=== PATIENT | female | born 1970 | race African-American/Black ===

== ENCOUNTER 2021-12-06 10:27 | Observation (INO) | payer OTHER ==
[2021-12-06 11:25] VITALS: BMI 32.1
[2021-12-06] MEDS ORDERED: ALBUTEROL SO4 0.083% IH SOL 2.5 MG/3 ML VIAL.NEB. NEB ONE (11:47)
[2021-12-06] MEDS: ALBUTEROL SO4 0.083% IH SOL 2.5 MG/3 ML VIAL.NEB. NEB SCH ×4 (11:50→12:50)
[2021-12-06] MEDS ORDERED: METOCLOPRAMIDE HCL INJECTION 10 MG/2 ML VIAL IVPB ONE (13:46)
[2021-12-06] MEDS ORDERED: METOCLOPRAMIDE HCL INJECTION 10 MG/2 ML VIAL ONE (13:50)
[2021-12-06] MEDS ORDERED: METOCLOPRAMIDE HCL 10 MG TABLET (FP) PO ONE ×2 (13:58→14:00)
[2021-12-06] MEDS ORDERED: HYDROmorphone HCl 2 MG/ML VIAL IVPUSH ONE (17:16)
[2021-12-06] MEDS ORDERED: HYDROmorphone HCl 2 MG/ML VIAL ONE (17:35)
[2021-12-06 18:24] LABS: BASO % 0.2 % (0-2.0); EOS % 0.5 % (0-4.5); HEMATOCRIT 45.1 % (32.4-45.2); HEMOGLOBIN 15.4 GM/dL (10.7-15.3); LYMPH % 29.7 % (8-40); MCH 32.6 pg (25.7-33.7); MCHC 34.3 g/dl (32.0-36.0); MEAN CELL VOLUME 95.1 fl (80-96); MEAN PLT VOLUME 8.8 fl (7.5-11.1); NEUT % 60.6 % (42.8-82.8); PLATELET COUNT 201 10^3/uL (134-434); RBC 4.74 M/mm3 (3.60-5.2); RDW 13.6 % (11.6-15.6); WHITE BLOOD COUNT 6.2 K/mm3 (4.0-10.0)
[2021-12-06 18:30] LABS: CALCIUM 9.4 mg/dL (8.5-10.1)
[2021-12-06 18:32] LABS: ALBUMIN 3.6 g/dl (3.4-5.0); BLOOD UREA NITROGEN 13.6 mg/dL (7-18)
[2021-12-06 18:35] LABS: CREATININE 0.9 mg/dL (0.55-1.3)
[2021-12-06 18:37] LABS: BILIRUBIN,TOTAL 0.5 mg/dL (0.2-1); TOT PROT 7.2 g/dl (6.4-8.2)
[2021-12-06] MEDS ORDERED: ACETAMINOPHEN 325 MG TABLET (FP) PO PRN (18:45)
[2021-12-06] MEDS ORDERED: ACETAMINOPHEN 325 MG TABLET (FP) ONE (18:50)
[2021-12-06] MEDS: ACETAMINOPHEN 325 MG TABLET (FP) PO SCH (18:53)
[2021-12-06] MEDS: GABAPENTIN 400 MG CAPSULE PO SCH (22:10)
[2021-12-06] MEDS: oxyCODONE HCL 5 MG TABLET PO PRN (22:11)
[2021-12-06] MEDS: DOCUSATE SODIUM 100 MG CAPSULE (FP) PO SCH (22:12)
[2021-12-06] MEDS: HEPARIN NA (PORCINE) 5,000 UNITS/ML 1ML VIAL SQ SCH (22:12)
[2021-12-07] MEDS ORDERED: morphine SULFATE 4 MG/ML VIAL IVPUSH ONE (04:06)
[2021-12-07] MEDS: GABAPENTIN 400 MG CAPSULE PO SCH (06:23)
[2021-12-07] MEDS: HEPARIN NA (PORCINE) 5,000 UNITS/ML 1ML VIAL SQ SCH ×3 (06:23→21:13)
[2021-12-07] MEDS: oxyCODONE HCL 5 MG TABLET PO PRN (06:23)
[2021-12-07 08:41] LABS: HEMATOCRIT 42.4 % (32.4-45.2); HEMOGLOBIN 14.5 GM/dL (10.7-15.3); MCH 32.7 pg (25.7-33.7); MCHC 34.1 g/dl (32.0-36.0); MEAN CELL VOLUME 95.9 fl (80-96); MEAN PLT VOLUME 8.8 fl (7.5-11.1); PLATELET COUNT 179 10^3/uL (134-434); RBC 4.42 M/mm3 (3.60-5.2); RDW 13.6 % (11.6-15.6); WHITE BLOOD COUNT 4.1 K/mm3 (4.0-10.0)
[2021-12-07] MEDS: DOCUSATE SODIUM 100 MG CAPSULE (FP) PO SCH (09:55)
[2021-12-07] MEDS: FLUTICASONE/UMECLIDIN/VILANTER(200-62.5-25 TRELEGY ELLIPTA) INAHLER IH SCH (09:55)
[2021-12-07] MEDS: POLYETHYLENE GLYCOL (HEALTHYLAX) 3350 17 GM PACKET PO SCH (09:56)
[2021-12-07] MEDS: ACETAMINOPHEN 325 MG TABLET (FP) PO SCH ×2 (10:00→22:30)
[2021-12-07] MEDS ORDERED: IBUPROFEN 400 MG TABLET (FP) PO PRN (10:04)
[2021-12-07] MEDS: ACETAMINOPHEN 1000 MG/100 ML BAG IVPB SCH ×2 (12:12→18:11)
[2021-12-07] MEDS: PANTOPRAZOLE 40 MG TABLET PO SCH (12:27)
[2021-12-07] MEDS: GABAPENTIN 300 MG CAPSULE PO SCH ×2 (13:49→21:14)
[2021-12-07] MEDS ORDERED: IBUPROFEN 600 MG TABLET (FP) PO PRN (15:47)
[2021-12-07] MEDS: SENNOSIDES 8.6MG TABLET (FP) PO SCH (21:16)
[2021-12-08] MEDS: ACETAMINOPHEN 325 MG TABLET (FP) PO SCH ×4 (06:38→22:27)
[2021-12-08] MEDS: HEPARIN NA (PORCINE) 5,000 UNITS/ML 1ML VIAL SQ SCH ×3 (06:40→21:15)
[2021-12-08] MEDS: GABAPENTIN 300 MG CAPSULE PO SCH ×3 (06:41→21:15)
[2021-12-08 08:08] LABS: BASO % 0.3 % (0-2.0); EOS % 1.6 % (0-4.5); HEMATOCRIT 40.2 % (32.4-45.2); HEMOGLOBIN 13.8 GM/dL (10.7-15.3); LYMPH % 44.8 % (8-40); MCH 32.5 pg (25.7-33.7); MCHC 34.3 g/dl (32.0-36.0); MEAN CELL VOLUME 94.6 fl (80-96); MEAN PLT VOLUME 8.7 fl (7.5-11.1); MONO % 7.3 % (3.8-10.2); PLATELET COUNT 167 10^3/uL (134-434); RBC 4.25 M/mm3 (3.60-5.2); RDW 13.5 % (11.6-15.6); WHITE BLOOD COUNT 3.8 K/mm3 (4.0-10.0)
[2021-12-08 08:17] LABS: CALCIUM 8.5 mg/dL (8.5-10.1)
[2021-12-08 08:18] LABS: BLOOD UREA NITROGEN 12.3 mg/dL (7-18)
[2021-12-08 08:21] LABS: CREATININE 0.6 mg/dL (0.55-1.3)
[2021-12-08] MEDS: PANTOPRAZOLE 40 MG TABLET PO SCH (11:04)
[2021-12-08] MEDS: FLUTICASONE/UMECLIDIN/VILANTER(200-62.5-25 TRELEGY ELLIPTA) INAHLER IH SCH (11:04)
[2021-12-08] MEDS: POLYETHYLENE GLYCOL (HEALTHYLAX) 3350 17 GM PACKET PO SCH (11:04)
[2021-12-08] MEDS: SENNOSIDES 8.6MG TABLET (FP) PO SCH (21:15)
[2021-12-09] MEDS: HEPARIN NA (PORCINE) 5,000 UNITS/ML 1ML VIAL SQ SCH ×3 (05:54→21:37)
[2021-12-09] MEDS: ACETAMINOPHEN 325 MG TABLET (FP) PO SCH ×3 (05:57→21:38)
[2021-12-09] MEDS: GABAPENTIN 300 MG CAPSULE PO SCH ×3 (05:57→21:37)
[2021-12-09 09:29] LABS: BASO % 0.5 % (0-2.0); EOS % 1.5 % (0-4.5); HEMATOCRIT 42.1 % (32.4-45.2); HEMOGLOBIN 14.3 GM/dL (10.7-15.3); LYMPH % 47.6 % (8-40); MCH 32.4 pg (25.7-33.7); MCHC 33.9 g/dl (32.0-36.0); MEAN CELL VOLUME 95.7 fl (80-96); MEAN PLT VOLUME 9.1 fl (7.5-11.1); MONO % 6.6 % (3.8-10.2); NEUT % 43.8 % (42.8-82.8); PLATELET COUNT 191 10^3/uL (134-434); RDW 13.5 % (11.6-15.6); WHITE BLOOD COUNT 3.4 K/mm3 (4.0-10.0)
[2021-12-09 09:59] LABS: BLOOD UREA NITROGEN 5.2 mg/dL (7-18)
[2021-12-09 10:01] LABS: CALCIUM 8.9 mg/dL (8.5-10.1)
[2021-12-09 10:02] LABS: CREATININE 0.4 mg/dL (0.55-1.3)
[2021-12-09 10:04] LABS: TOT PROT 5.3 g/dl (6.4-8.2)
[2021-12-09 10:05] LABS: ALBUMIN 2.2 g/dl (3.4-5.0)
[2021-12-09] MEDS: POLYETHYLENE GLYCOL (HEALTHYLAX) 3350 17 GM PACKET PO SCH (10:39)
[2021-12-09] MEDS: PANTOPRAZOLE 40 MG TABLET PO SCH (10:41)
[2021-12-09] MEDS: FLUTICASONE/UMECLIDIN/VILANTER(200-62.5-25 TRELEGY ELLIPTA) INAHLER IH SCH (10:45)
[2021-12-09] MEDS: SODIUM CHLORIDE 1,000 ML IV SCH (14:19)
[2021-12-09] MEDS ORDERED: DEXTROSE 50%-WATER - 25 GM/50 ML VIAL IVPUSH PRN (16:50)
[2021-12-09] MEDS: SENNOSIDES 8.6MG TABLET (FP) PO SCH (21:37)
[2021-12-10] MEDS: SODIUM CHLORIDE 1,000 ML IV SCH ×2 (05:16→16:35)
[2021-12-10] MEDS: GABAPENTIN 300 MG CAPSULE PO SCH (05:16)
[2021-12-10] MEDS: ACETAMINOPHEN 325 MG TABLET (FP) PO SCH (05:17)
[2021-12-10] MEDS: HEPARIN NA (PORCINE) 5,000 UNITS/ML 1ML VIAL SQ SCH ×3 (05:20→21:34)
[2021-12-10] MEDS: PANTOPRAZOLE 40 MG TABLET PO SCH (09:22)
[2021-12-10] MEDS: POLYETHYLENE GLYCOL (HEALTHYLAX) 3350 17 GM PACKET PO SCH (09:22)
[2021-12-10] MEDS: FLUTICASONE/UMECLIDIN/VILANTER(200-62.5-25 TRELEGY ELLIPTA) INAHLER IH SCH (09:33)
[2021-12-10 09:52] LABS: BASO % 0.3 % (0-2.0); EOS % 1.4 % (0-4.5); HEMATOCRIT 43.6 % (32.4-45.2); LYMPH % 42.9 % (8-40); MCH 32.8 pg (25.7-33.7); MCHC 34.3 g/dl (32.0-36.0); MEAN CELL VOLUME 95.6 fl (80-96); MEAN PLT VOLUME 8.9 fl (7.5-11.1); MONO % 6.1 % (3.8-10.2); NEUT % 49.3 % (42.8-82.8); PLATELET COUNT 183 10^3/uL (134-434); RBC 4.56 M/mm3 (3.60-5.2); RDW 13.3 % (11.6-15.6); WHITE BLOOD COUNT 3.7 K/mm3 (4.0-10.0)
[2021-12-10 10:25] LABS: CALCIUM 8.8 mg/dL (8.5-10.1)
[2021-12-10 10:26] LABS: BLOOD UREA NITROGEN 11.8 mg/dL (7-18); MAGNESIUM 2.2 mg/dL (1.8-2.4)
[2021-12-10 10:29] LABS: CREATININE 0.7 mg/dL (0.55-1.3); PHOSPHOROUS 3.6 mg/dL (2.5-4.9)
[2021-12-10 10:30] LABS: BILIRUBIN,TOTAL 0.8 mg/dL (0.2-1); TOT PROT 6.4 g/dl (6.4-8.2)
[2021-12-10 10:38] LABS: ALBUMIN 3.1 g/dl (3.4-5.0)
[2021-12-10] MEDS ORDERED: ACETAMINOPHEN 325 MG TABLET (FP) PO PRN (12:54)
[2021-12-10] MEDS ORDERED: GABAPENTIN 300 MG CAPSULE PO SCH (14:00)
[2021-12-10] MEDS: LIDOCAINE 5% TOPICAL PATCH TP SCH (14:49)
[2021-12-10] MEDS: GABAPENTIN 400 MG CAPSULE PO SCH ×2 (14:49→21:34)
[2021-12-10] MEDS: oxyCODONE HCL 5 MG TABLET PO PRN ×2 (14:51→23:09)
[2021-12-10] MEDS ORDERED: DICLOFENAC SODIUM 25 MG TABLET.DR PO PRN (16:16)
[2021-12-10] MEDS: SENNOSIDES 8.6MG TABLET (FP) PO SCH (21:34)
[2021-12-10] MEDS: LIDOCAINE PATCH REMOVAL MC SCH (22:49)
[2021-12-11] MEDS: ACETAMINOPHEN 325 MG TABLET (FP) PO PRN ×3 (04:58→20:36)
[2021-12-11] MEDS: GABAPENTIN 400 MG CAPSULE PO SCH ×3 (05:07→21:17)
[2021-12-11] MEDS: HEPARIN NA (PORCINE) 5,000 UNITS/ML 1ML VIAL SQ SCH ×3 (05:08→21:18)
[2021-12-11] MEDS: oxyCODONE HCL 5 MG TABLET PO PRN ×2 (08:14→16:21)
[2021-12-11] MEDS: POLYETHYLENE GLYCOL (HEALTHYLAX) 3350 17 GM PACKET PO SCH (10:04)
[2021-12-11] MEDS: PANTOPRAZOLE 40 MG TABLET PO SCH (10:05)
[2021-12-11] MEDS: FLUTICASONE/UMECLIDIN/VILANTER(200-62.5-25 TRELEGY ELLIPTA) INAHLER IH SCH (10:05)
[2021-12-11] MEDS: LIDOCAINE 5% TOPICAL PATCH TP SCH (10:47)
[2021-12-11] MEDS: SENNOSIDES 8.6MG TABLET (FP) PO SCH (21:17)
[2021-12-11] MEDS: LIDOCAINE PATCH REMOVAL MC SCH (21:34)
[2021-12-12] MEDS: oxyCODONE HCL 5 MG TABLET PO PRN ×2 (00:46→09:32)
[2021-12-12] MEDS: ACETAMINOPHEN 325 MG TABLET (FP) PO PRN (05:15)
[2021-12-12] MEDS: HEPARIN NA (PORCINE) 5,000 UNITS/ML 1ML VIAL SQ SCH (05:17)
[2021-12-12] MEDS: GABAPENTIN 400 MG CAPSULE PO SCH (05:18)
[2021-12-12 06:23] VITALS: BP 121/73; PULSE 73; TEMP 98.3
[2021-12-12] MEDS: LIDOCAINE 5% TOPICAL PATCH TP SCH (09:32)
[2021-12-12] MEDS: PANTOPRAZOLE 40 MG TABLET PO SCH (09:33)
[2021-12-12] MEDS: POLYETHYLENE GLYCOL (HEALTHYLAX) 3350 17 GM PACKET PO SCH (09:40)
[2021-12-12] MEDS: FLUTICASONE/UMECLIDIN/VILANTER(200-62.5-25 TRELEGY ELLIPTA) INAHLER IH SCH (10:09)
== END 2021-12-12 12:19 | disposition home or self-care (01) ==
LOC: JER 10:27 → JERBED 16:38 → INTOOBSV 16:38 → J7W 21:54
PROVIDERS: ADMIT Internal Medicine; ATTEND Internal Medicine
PROC: 3E0F7GC Introduction of Other Therapeutic Substance into Respiratory Tract, Via Natural or Artificial Opening (ICD-10-PCS; principal; 2021-12-06)
PROC: 3E033GC Introduction of Other Therapeutic Substance into Peripheral Vein, Percutaneous Approach (ICD-10-PCS; 2021-12-06)
PROC: 3E023GC Introduction of Other Therapeutic Substance into Muscle, Percutaneous Approach (ICD-10-PCS; 2021-12-06)
PROC: 3E033NZ Introduction of Analgesics, Hypnotics, Sedatives into Peripheral Vein, Percutaneous Approach (ICD-10-PCS; 2021-12-06)
DX: M87.051 Idiopathic aseptic necrosis of right femur (principal); M25.551 Pain in right hip; J44.9 Chronic obstructive pulmonary disease, unspecified; G89.29 Other chronic pain; F43.10 Post-traumatic stress disorder, unspecified; Z29.9 Encounter for prophylactic measures, unspecified; E66.8 Other obesity; Z68.32 Body mass index [BMI] 32.0-32.9, adult; Z88.8 Allergy status to other drugs, medicaments and biological substances; Z87.891 Personal history of nicotine dependence
CPT/HCPCS: 36415; 72170-TC-FY; 73502-TC-RT-FY; 80048; 80053; 82550; 83735; 84100; 84484; 85025; 85027; 93005; 93010; 93971-TC; 94640; 96372; 96374; 96375; 96376; 97116-GP; 97161-GP; 99285-25; C9803; G0378; J1644; U0003; U0005

== ENCOUNTER 2022-11-02 14:16 | Inpatient (IN) | payer OTHER ==
[2022-11-02] MEDS ORDERED: FAMOTIDINE 20 MG/50 ML IVPB 20 MG/50 ML MG IVPB ONE ×2 (15:05→16:09)
[2022-11-02] MEDS ORDERED: ONDANSETRON 4 MG/2 ML VIAL IVPUSH ONE (15:05)
[2022-11-02] MEDS ORDERED: ACETAMINOPHEN 500 MG TABLET (FP) PO ONE (15:06)
[2022-11-02] MEDS ORDERED: ACETAMINOPHEN 325 MG TABLET (FP) ONE (16:08)
[2022-11-02] MEDS ORDERED: ONDANSETRON 4 MG/2 ML VIAL ONE (16:09)
[2022-11-02 16:20] LABS: EPI CELLS >36 /uL (0-25.1); HYALINE CASTS 11 /uL (0-3.1); URINE APPEARANCE CLEAR; URINE BACTERIA 92 /uL (0-1359); URINE BILIRUBIN NEGATIVE (NEGATIVE); URINE COLOR YELLOW; URINE GLUCOSE (UA) NEGATIVE (NEGATIVE); URINE KETONE 1+ (NEGATIVE); URINE LEUK ESTERASE NEGATIVE (NEGATIVE); URINE NITRITE NEGATIVE (NEGATIVE); URINE PROTEIN 2+ (NEGATIVE); URINE RBC 29 /uL (0-23.9); URINE WBC 52 /uL (0-25.8)
[2022-11-02] MEDS: LACTATED RINGERS SOLUTION 1,000 ML/1,000 ML INFUS.BAG IV SCH (16:38)
[2022-11-02 16:58] LABS: VENOUS BASE EXCESS 5.6 mmol/L (-2-2); VENOUS O2 SATURATION 34.3 % (70-80); VENOUS PCO2 49.3 mmHg (38-52); VENOUS PH 7.426 (7.310-7.410)
[2022-11-02 17:04] LABS: HEMATOCRIT 51.8 % (32.4-45.2); HEMOGLOBIN 17.6 GM/dL (10.7-15.3); MCH 32.8 pg (25.7-33.7); MEAN CELL VOLUME 96.7 fl (80-96); MEAN PLT VOLUME 8.8 fl (7.5-11.1); PLATELET COUNT 227 10^3/uL (134-434); RBC 5.36 M/mm3 (3.60-5.2); RDW 13.4 % (11.6-15.6); WHITE BLOOD COUNT 17.6 K/mm3 (4.0-10.0)
[2022-11-02 17:11] LABS: INR 1.09 (0.83-1.09); PROTHROMBIN TIME (PATIENT) 12.6 SEC (9.7-13.0)
[2022-11-02 17:14] LABS: ACTIVATED PTT 28.6 SECONDS (25.2-36.5)
[2022-11-02 17:29] LABS: ANISOCYTOSIS 0; HELMET CELLS 0; HOWELL-JOLLY BODIES 0; MACROCYTOSIS 0; OVALOCYTE 0; ROULEAU 0; SICKELED CELLS 0; TARGET CELLS 0; TEAR DROP CELLS 0; TOXIC GRANULATION 0
[2022-11-02 17:39] LABS: CALCIUM 9.6 mg/dL (8.5-10.1)
[2022-11-02 17:40] LABS: ALBUMIN 3.8 g/dl (3.4-5.0); BLOOD UREA NITROGEN 12.2 mg/dL (7-18)
[2022-11-02 17:45] LABS: TOT PROT 7.6 g/dl (6.4-8.2)
[2022-11-02 17:48] LABS: N-TERMINAL BNP 345.1 pg/ml (5-125)
[2022-11-02] MEDS: ALBUTEROL SO4 2.5/IPRATROPIUM 0.5 INH SOL 3 ML VIAL.NEB. NEB SCH ×3 (18:49→20:02)
[2022-11-02] MEDS ORDERED: methylPREDNISolone NA SUCC 125 MG/2 ML VIAL IVPB ONE (18:55)
[2022-11-02] MEDS ORDERED: ALBUTEROL SO4 2.5/IPRATROPIUM 0.5 INH SOL 3 ML VIAL.NEB. NEB ONE ×2 (19:08→19:45)
[2022-11-02] MEDS ORDERED: methylPREDNISolone NA SUCC 125 MG/2 ML VIAL ONE (19:09)
[2022-11-02] MEDS ORDERED: CEFTRIAXONE 1,000 MG in DEXTROSE 5%-WATER - 50 ML IVPB ONE (19:12)
[2022-11-02] MEDS ORDERED: CEFTRIAXONE 1 GM/50 ML BAG ONE (19:43)
[2022-11-02] MEDS ORDERED: morphine SULFATE 4 MG/ML VIAL IVPUSH ONE (19:47)
[2022-11-02] MEDS ORDERED: morphine SULFATE 4 MG/ML VIAL ONE (19:49)
[2022-11-02] MEDS ORDERED: ALBUTEROL SO4 HFA INHALER IH PRN (22:17)
[2022-11-02] MEDS ORDERED: methylPREDNISolone NA SUCC 40 MG/1 ML VIAL ONE (23:27)
[2022-11-02] MEDS: methylPREDNISolone NA SUCC 40 MG/1 ML VIAL IVPUSH SCH (23:38)
[2022-11-02] MEDS ORDERED: TRIMETHOBENZAMIDE HCL 200MG/2ML INJ IM PRN (23:58)
[2022-11-03 00:08] LABS: METHADONE, UR NEGATIVE (NEGATIVE); PHENCYCLIDINE,URINE NEGATIVE (NEGATIVE); URINE AMPHETAMINES NEGATIVE (NEGATIVE)
[2022-11-03 00:09] LABS: OPIATES, URI NEGATIVE (NEGATIVE); URINE BARBITURATES NEGATIVE (NEGATIVE)
[2022-11-03] MEDS ORDERED: morphine SO4 SUSTAINED ACTING 15 MG TABLET.SA ONE (00:24)
[2022-11-03] MEDS ORDERED: morphine SO4 SUSTAINED ACTING 15 MG TABLET.SA PO ONE (00:30)
[2022-11-03 00:35] LABS: COCAINE, UR POSITIVE (NEGATIVE); URINE BENZODIAZEPINES NEGATIVE (NEGATIVE)
[2022-11-03] MEDS ORDERED: morphine SO4 SUSTAINED ACTING 15 MG TABLET.SA PO SCH ×2 (00:39→10:00)
[2022-11-03] MEDS ORDERED: ALBUTEROL SO4 0.083% IH SOL 2.5 MG/3 ML VIAL.NEB. NEB PRN (01:35)
[2022-11-03 02:04] LABS: MAGNESIUM 2.3 mg/dL (1.8-2.4)
[2022-11-03 02:07] LABS: PHOSPHOROUS 3.9 mg/dL (2.5-4.9)
[2022-11-03] MEDS ORDERED: oxyCODONE HCL 5 MG TABLET ONE ×3 (02:28→18:04)
[2022-11-03] MEDS ORDERED: ACETAMINOPHEN 325 MG TABLET (FP) ONE ×4 (02:28→23:25)
[2022-11-03] MEDS: oxyCODONE HCL 5 MG TABLET PO SCH ×3 (02:32→18:24)
[2022-11-03] MEDS: methylPREDNISolone NA SUCC 40 MG/1 ML VIAL IVPUSH SCH ×3 (02:32→18:24)
[2022-11-03] MEDS: ACETAMINOPHEN 325 MG TABLET (FP) PO SCH ×3 (02:32→23:27)
[2022-11-03] MEDS ORDERED: GABAPENTIN 300 MG CAPSULE ONE (06:48)
[2022-11-03] MEDS: GABAPENTIN 400 MG CAPSULE PO SCH ×3 (06:53→23:28)
[2022-11-03 07:04] LABS: HEMATOCRIT 43.7 % (32.4-45.2); HEMOGLOBIN 14.8 GM/dL (10.7-15.3); MCH 32.9 pg (25.7-33.7); MCHC 33.8 g/dl (32.0-36.0); MEAN CELL VOLUME 97.2 fl (80-96); PLATELET COUNT 200 10^3/uL (134-434); RBC 4.49 M/mm3 (3.60-5.2); RDW 13.5 % (11.6-15.6)
[2022-11-03 07:26] LABS: CALCIUM 8.7 mg/dL (8.5-10.1)
[2022-11-03 07:27] LABS: ALBUMIN 3.3 g/dl (3.4-5.0); BLOOD UREA NITROGEN 19.1 mg/dL (7-18); MAGNESIUM 2.3 mg/dL (1.8-2.4)
[2022-11-03 07:30] LABS: CREATININE 1.1 mg/dL (0.55-1.3); PHOSPHOROUS 4.4 mg/dL (2.5-4.9)
[2022-11-03 07:31] LABS: TOT PROT 6.5 g/dl (6.4-8.2)
[2022-11-03 07:32] LABS: BILIRUBIN,TOTAL 0.5 mg/dL (0.2-1)
[2022-11-03] MEDS: ALBUTEROL SO4 2.5/IPRATROPIUM 0.5 INH SOL 3 ML VIAL.NEB. NEB SCH ×3 (08:44→23:21)
[2022-11-03] MEDS ORDERED: METHOCARBAMOL 500 MG TABLET ONE (09:16)
[2022-11-03] MEDS ORDERED: PANTOPRAZOLE 40 MG TABLET PO ONE (09:16)
[2022-11-03] MEDS ORDERED: FERROUS SO4 325 MG TABLET (FP) ONE (09:16)
[2022-11-03] MEDS ORDERED: methylPREDNISolone NA SUCC 40 MG/1 ML VIAL ONE ×2 (09:17→18:05)
[2022-11-03] MEDS ORDERED: ENOXAPARIN NA (PORCINE) 40 MG/0.4 ML DISP.SYRIN SQ ONE (09:17)
[2022-11-03] MEDS ORDERED: LIDOCAINE 5% TOPICAL PATCH ONE (09:17)
[2022-11-03] MEDS: FERROUS SO4 325 MG TABLET (FP) PO SCH (09:21)
[2022-11-03] MEDS: POLYETHYLENE GLYCOL (HEALTHYLAX) 3350 17 GM PACKET PO SCH ×2 (09:21→23:45)
[2022-11-03] MEDS: METHOCARBAMOL 500 MG TABLET PO SCH (09:22)
[2022-11-03] MEDS: LIDOCAINE 5% TOPICAL PATCH TP SCH (09:22)
[2022-11-03] MEDS: ENOXAPARIN NA (PORCINE) 40 MG/0.4 ML DISP.SYRIN SQ SCH (09:22)
[2022-11-03] MEDS: PANTOPRAZOLE 40 MG TABLET PO SCH (09:22)
[2022-11-03] MEDS: THEOPHYLLINE ANHYDROUS 200 MG CAP.ER.24H PO SCH (11:35)
[2022-11-03] MEDS: CEFUROXIME AXETIL 500 MG TABLET PO SCH (11:35)
[2022-11-03] MEDS: FLUTICASONE/UMECLIDIN/VILANTER(200-62.5-25 TRELEGY ELLIPTA) INAHLER IH SCH (11:36)
[2022-11-03] MEDS ORDERED: GABAPENTIN 400 MG CAPSULE ONE ×2 (18:04→23:26)
[2022-11-03] MEDS: LACTATED RINGERS SOLUTION 1,000 ML/1,000 ML INFUS.BAG IV SCH (18:24)
[2022-11-03] MEDS ORDERED: ALBUTEROL SO4 2.5/IPRATROPIUM 0.5 INH SOL 3 ML VIAL.NEB. NEB ONE (23:25)
[2022-11-03] MEDS ORDERED: MONTELUKAST NA 10 MG TABLET ONE (23:26)
[2022-11-03] MEDS: LIDOCAINE PATCH REMOVAL MC SCH (23:28)
[2022-11-03] MEDS: MONTELUKAST NA 10 MG TABLET PO SCH (23:28)
[2022-11-03] MEDS ORDERED: POLYETHYLENE GLYCOL (HEALTHYLAX) 3350 17 GM PACKET ONE (23:35)
[2022-11-04] MEDS: CEFUROXIME AXETIL 500 MG TABLET PO SCH ×2 (01:11→10:18)
[2022-11-04] MEDS: ACETAMINOPHEN 325 MG TABLET (FP) PO SCH ×3 (02:42→18:22)
[2022-11-04] MEDS: methylPREDNISolone NA SUCC 40 MG/1 ML VIAL IVPUSH SCH ×3 (02:43→22:22)
[2022-11-04] MEDS: oxyCODONE HCL 5 MG TABLET PO SCH ×3 (02:44→18:23)
[2022-11-04 04:19] VITALS: BMI 29.0
[2022-11-04] MEDS: GABAPENTIN 400 MG CAPSULE PO SCH ×3 (07:06→22:22)
[2022-11-04] MEDS: ALBUTEROL SO4 2.5/IPRATROPIUM 0.5 INH SOL 3 ML VIAL.NEB. NEB SCH ×4 (09:36→20:30)
[2022-11-04] MEDS ORDERED: morphine SO4 SUSTAINED ACTING 15 MG TABLET.SA PO SCH (10:00)
[2022-11-04] MEDS: PANTOPRAZOLE 40 MG TABLET PO SCH (10:17)
[2022-11-04] MEDS: FERROUS SO4 325 MG TABLET (FP) PO SCH (10:18)
[2022-11-04] MEDS: LIDOCAINE 5% TOPICAL PATCH TP SCH (10:20)
[2022-11-04] MEDS: THEOPHYLLINE ANHYDROUS 200 MG CAP.ER.24H PO SCH (10:21)
[2022-11-04] MEDS: ENOXAPARIN NA (PORCINE) 40 MG/0.4 ML DISP.SYRIN SQ SCH (10:24)
[2022-11-04] MEDS: POLYETHYLENE GLYCOL (HEALTHYLAX) 3350 17 GM PACKET PO SCH ×2 (10:25→22:24)
[2022-11-04] MEDS ORDERED: methylPREDNISolone NA SUCC 40 MG/1 ML VIAL IVPUSH SCH (12:30)
[2022-11-04] MEDS: METHOCARBAMOL 500 MG TABLET PO SCH (12:51)
[2022-11-04] MEDS: FLUTICASONE/UMECLIDIN/VILANTER(200-62.5-25 TRELEGY ELLIPTA) INAHLER IH SCH (12:51)
[2022-11-04] MEDS: CEFTRIAXONE 1 GM in DEXTROSE 5%-WATER - 50 ML IVPB SCH (14:37)
[2022-11-04] MEDS: LIDOCAINE PATCH REMOVAL MC SCH (22:21)
[2022-11-04] MEDS: MONTELUKAST NA 10 MG TABLET PO SCH (22:21)
[2022-11-05] MEDS: ACETAMINOPHEN 325 MG TABLET (FP) PO SCH ×3 (02:10→18:56)
[2022-11-05] MEDS: oxyCODONE HCL 5 MG TABLET PO SCH ×3 (02:12→18:55)
[2022-11-05] MEDS: GABAPENTIN 400 MG CAPSULE PO SCH ×3 (06:44→23:17)
[2022-11-05 07:28] LABS: BASO % 0.1 % (0-2.0); HEMATOCRIT 41.7 % (32.4-45.2); MCHC 33.7 g/dl (32.0-36.0); MEAN CELL VOLUME 98.1 fl (80-96); MEAN PLT VOLUME 8.7 fl (7.5-11.1); MONO % 3.6 % (3.8-10.2); NEUT % 89.3 % (42.8-82.8); PLATELET COUNT 206 10^3/uL (134-434); RBC 4.25 M/mm3 (3.60-5.2); RDW 13.7 % (11.6-15.6); WHITE BLOOD COUNT 7.6 K/mm3 (4.0-10.0)
[2022-11-05 07:46] LABS: BLOOD UREA NITROGEN 17.8 mg/dL (7-18); CALCIUM 8.8 mg/dL (8.5-10.1)
[2022-11-05 07:49] LABS: CREATININE 0.9 mg/dL (0.55-1.3)
[2022-11-05 07:50] LABS: BILIRUBIN,TOTAL 0.2 mg/dL (0.2-1); TOT PROT 6.1 g/dl (6.4-8.2)
[2022-11-05] MEDS: ALBUTEROL SO4 2.5/IPRATROPIUM 0.5 INH SOL 3 ML VIAL.NEB. NEB SCH ×4 (09:00→20:13)
[2022-11-05] MEDS: methylPREDNISolone NA SUCC 40 MG/1 ML VIAL IVPUSH SCH ×2 (09:46→23:18)
[2022-11-05] MEDS: CEFTRIAXONE 1 GM in DEXTROSE 5%-WATER - 50 ML IVPB SCH (09:47)
[2022-11-05] MEDS: ENOXAPARIN NA (PORCINE) 40 MG/0.4 ML DISP.SYRIN SQ SCH (09:47)
[2022-11-05] MEDS: POLYETHYLENE GLYCOL (HEALTHYLAX) 3350 17 GM PACKET PO SCH ×2 (09:47→23:17)
[2022-11-05] MEDS: LIDOCAINE 5% TOPICAL PATCH TP SCH (09:47)
[2022-11-05] MEDS: PANTOPRAZOLE 40 MG TABLET PO SCH (09:48)
[2022-11-05] MEDS: FLUTICASONE/UMECLIDIN/VILANTER(200-62.5-25 TRELEGY ELLIPTA) INAHLER IH SCH (09:49)
[2022-11-05] MEDS: FERROUS SO4 325 MG TABLET (FP) PO SCH (09:49)
[2022-11-05] MEDS: THEOPHYLLINE ANHYDROUS 200 MG CAP.ER.24H PO SCH (09:51)
[2022-11-05] MEDS: METHOCARBAMOL 500 MG TABLET PO SCH (09:51)
[2022-11-05] MEDS ORDERED: BISACODYL 5 MG TABLET.DR (FP) PO ONE (15:49)
[2022-11-05] MEDS: SIMETHICONE 80 MG TAB.CHEW (FP) PO PRN (16:15)
[2022-11-05] MEDS: SENNOSIDES 8.6MG TABLET (FP) PO SCH ×2 (16:15→23:17)
[2022-11-05] MEDS: MONTELUKAST NA 10 MG TABLET PO SCH (23:17)
[2022-11-05] MEDS: LIDOCAINE PATCH REMOVAL MC SCH (23:28)
[2022-11-06] MEDS: oxyCODONE HCL 5 MG TABLET PO SCH ×3 (02:30→17:37)
[2022-11-06] MEDS: ACETAMINOPHEN 325 MG TABLET (FP) PO SCH ×3 (02:31→17:39)
[2022-11-06] MEDS: GABAPENTIN 400 MG CAPSULE PO SCH ×3 (06:14→21:30)
[2022-11-06] MEDS: ALBUTEROL SO4 2.5/IPRATROPIUM 0.5 INH SOL 3 ML VIAL.NEB. NEB SCH ×4 (07:15→20:05)
[2022-11-06] MEDS: POLYETHYLENE GLYCOL (HEALTHYLAX) 3350 17 GM PACKET PO SCH ×2 (09:51→21:30)
[2022-11-06] MEDS: LIDOCAINE 5% TOPICAL PATCH TP SCH (09:51)
[2022-11-06] MEDS: methylPREDNISolone NA SUCC 40 MG/1 ML VIAL IVPUSH SCH ×2 (09:51→21:30)
[2022-11-06] MEDS: ENOXAPARIN NA (PORCINE) 40 MG/0.4 ML DISP.SYRIN SQ SCH (09:51)
[2022-11-06] MEDS: CEFTRIAXONE 1 GM in DEXTROSE 5%-WATER - 50 ML IVPB SCH (09:51)
[2022-11-06] MEDS: FERROUS SO4 325 MG TABLET (FP) PO SCH (09:52)
[2022-11-06] MEDS: SENNOSIDES 8.6MG TABLET (FP) PO SCH ×2 (09:52→21:30)
[2022-11-06] MEDS: PANTOPRAZOLE 40 MG TABLET PO SCH (09:52)
[2022-11-06 09:53] LABS: HEMATOCRIT 43.7 % (32.4-45.2); HEMOGLOBIN 14.7 GM/dL (10.7-15.3); MCH 33.3 pg (25.7-33.7); MCHC 33.7 g/dl (32.0-36.0); PLATELET COUNT 252 10^3/uL (134-434); RBC 4.41 M/mm3 (3.60-5.2); RDW 14.1 % (11.6-15.6); WHITE BLOOD COUNT 8.8 K/mm3 (4.0-10.0)
[2022-11-06] MEDS: THEOPHYLLINE ANHYDROUS 200 MG CAP.ER.24H PO SCH (09:53)
[2022-11-06] MEDS: METHOCARBAMOL 500 MG TABLET PO SCH (09:53)
[2022-11-06] MEDS: FLUTICASONE/UMECLIDIN/VILANTER(200-62.5-25 TRELEGY ELLIPTA) INAHLER IH SCH (09:54)
[2022-11-06 10:35] LABS: CALCIUM 9.1 mg/dL (8.5-10.1)
[2022-11-06 10:36] LABS: ALBUMIN 3.3 g/dl (3.4-5.0); BLOOD UREA NITROGEN 20.5 mg/dL (7-18); MAGNESIUM 2.1 mg/dL (1.8-2.4)
[2022-11-06 10:39] LABS: CREATININE 0.8 mg/dL (0.55-1.3); PHOSPHOROUS 2.6 mg/dL (2.5-4.9); TOT PROT 6.6 g/dl (6.4-8.2)
[2022-11-06 10:42] LABS: BILIRUBIN,TOTAL 0.2 mg/dL (0.2-1)
[2022-11-06] MEDS ORDERED: LACTULOSE 20 GM/30 ML UDC (FOR ORAL USE ONLY) PO ONE (13:29)
[2022-11-06] MEDS: SIMETHICONE 80 MG TAB.CHEW (FP) PO PRN (14:17)
[2022-11-06] MEDS ORDERED: PEG 3350/NA SULF BICARB CL/KCL 4000 ML SOLN.RECON PO ONE (15:00)
[2022-11-06] MEDS ORDERED: Methylnaltrexone Bromide 12 MG/0.6 ML KIT SQ ONE (20:10)
[2022-11-06] MEDS: MONTELUKAST NA 10 MG TABLET PO SCH (21:30)
[2022-11-06] MEDS: LIDOCAINE PATCH REMOVAL MC SCH (21:31)
[2022-11-07] MEDS: ACETAMINOPHEN 325 MG TABLET (FP) PO SCH ×3 (03:43→17:38)
[2022-11-07] MEDS: oxyCODONE HCL 5 MG TABLET PO SCH ×3 (03:45→17:37)
[2022-11-07] MEDS: GABAPENTIN 400 MG CAPSULE PO SCH ×3 (05:32→22:25)
[2022-11-07] MEDS: ALBUTEROL SO4 2.5/IPRATROPIUM 0.5 INH SOL 3 ML VIAL.NEB. NEB SCH ×4 (08:25→20:29)
[2022-11-07 09:38] LABS: ALBUMIN 3.1 g/dl (3.4-5.0); BLOOD UREA NITROGEN 20.8 mg/dL (7-18); CALCIUM 9.3 mg/dL (8.5-10.1)
[2022-11-07 09:41] LABS: CREATININE 0.8 mg/dL (0.55-1.3)
[2022-11-07 09:43] LABS: BILIRUBIN,TOTAL 0.2 mg/dL (0.2-1); TOT PROT 6.4 g/dl (6.4-8.2)
[2022-11-07] MEDS: CEFTRIAXONE 1 GM in DEXTROSE 5%-WATER - 50 ML IVPB SCH ×2 (10:07→12:00)
[2022-11-07] MEDS: ENOXAPARIN NA (PORCINE) 40 MG/0.4 ML DISP.SYRIN SQ SCH (10:07)
[2022-11-07] MEDS: PANTOPRAZOLE 40 MG TABLET PO SCH (10:08)
[2022-11-07] MEDS: FERROUS SO4 325 MG TABLET (FP) PO SCH (10:08)
[2022-11-07] MEDS: methylPREDNISolone NA SUCC 40 MG/1 ML VIAL IVPUSH SCH (10:08)
[2022-11-07] MEDS: METHOCARBAMOL 500 MG TABLET PO SCH (10:08)
[2022-11-07] MEDS: POLYETHYLENE GLYCOL (HEALTHYLAX) 3350 17 GM PACKET PO SCH ×2 (10:08→22:25)
[2022-11-07] MEDS: SENNOSIDES 8.6MG TABLET (FP) PO SCH ×2 (10:08→22:25)
[2022-11-07] MEDS: LIDOCAINE 5% TOPICAL PATCH TP SCH (10:26)
[2022-11-07] MEDS: FLUTICASONE/UMECLIDIN/VILANTER(200-62.5-25 TRELEGY ELLIPTA) INAHLER IH SCH (10:27)
[2022-11-07] MEDS: THEOPHYLLINE ANHYDROUS 200 MG CAP.ER.24H PO SCH (11:31)
[2022-11-07] MEDS: MONTELUKAST NA 10 MG TABLET PO SCH (22:25)
[2022-11-07] MEDS: LIDOCAINE PATCH REMOVAL MC SCH (23:06)
[2022-11-08] MEDS: ACETAMINOPHEN 325 MG TABLET (FP) PO SCH ×3 (01:33→17:53)
[2022-11-08] MEDS: oxyCODONE HCL 5 MG TABLET PO SCH ×3 (01:33→17:54)
[2022-11-08] MEDS: GABAPENTIN 400 MG CAPSULE PO SCH ×3 (06:11→22:07)
[2022-11-08] MEDS: SIMETHICONE 80 MG TAB.CHEW (FP) PO PRN (06:11)
[2022-11-08] MEDS: ALBUTEROL SO4 2.5/IPRATROPIUM 0.5 INH SOL 3 ML VIAL.NEB. NEB SCH ×4 (07:45→20:42)
[2022-11-08] MEDS: POLYETHYLENE GLYCOL (HEALTHYLAX) 3350 17 GM PACKET PO SCH (09:12)
[2022-11-08] MEDS: PANTOPRAZOLE 40 MG TABLET PO SCH (09:13)
[2022-11-08] MEDS: FERROUS SO4 325 MG TABLET (FP) PO SCH (09:13)
[2022-11-08] MEDS: METHOCARBAMOL 500 MG TABLET PO SCH (09:13)
[2022-11-08] MEDS: ENOXAPARIN NA (PORCINE) 40 MG/0.4 ML DISP.SYRIN SQ SCH (09:13)
[2022-11-08] MEDS: predniSONE 20 MG TABLET (UD) PO SCH (09:14)
[2022-11-08] MEDS: LIDOCAINE 5% TOPICAL PATCH TP SCH (09:14)
[2022-11-08] MEDS: THEOPHYLLINE ANHYDROUS 200 MG CAP.ER.24H PO SCH (09:16)
[2022-11-08] MEDS: FLUTICASONE/UMECLIDIN/VILANTER(200-62.5-25 TRELEGY ELLIPTA) INAHLER IH SCH (09:17)
[2022-11-08 10:29] LABS: HEMATOCRIT 47.3 % (32.4-45.2); HEMOGLOBIN 15.8 GM/dL (10.7-15.3); MCH 33.1 pg (25.7-33.7); MCHC 33.4 g/dl (32.0-36.0); MEAN CELL VOLUME 99.3 fl (80-96); MEAN PLT VOLUME 8.3 fl (7.5-11.1); PLATELET COUNT 219 10^3/uL (134-434); RBC 4.77 M/mm3 (3.60-5.2); RDW 14.2 % (11.6-15.6); WHITE BLOOD COUNT 10.4 K/mm3 (4.0-10.0)
[2022-11-08] MEDS ORDERED: ALPRAZolam 0.25 MG TABLET PO PRN (10:32)
[2022-11-08 10:54] LABS: CALCIUM 8.7 mg/dL (8.5-10.1)
[2022-11-08 10:56] LABS: BLOOD UREA NITROGEN 13.5 mg/dL (7-18)
[2022-11-08 10:59] LABS: ALBUMIN 2.8 g/dl (3.4-5.0); BILIRUBIN,TOTAL 0.5 mg/dL (0.2-1); CREATININE 0.9 mg/dL (0.55-1.3); TOT PROT 5.8 g/dl (6.4-8.2)
[2022-11-08] MEDS: SENNOSIDES 8.6MG TABLET (FP) PO SCH ×3 (11:58→22:21)
[2022-11-08 21:55] VITALS: RESP 18
[2022-11-08] MEDS: MONTELUKAST NA 10 MG TABLET PO SCH (22:07)
[2022-11-08] MEDS: LIDOCAINE PATCH REMOVAL MC SCH (22:33)
[2022-11-09] MEDS: ACETAMINOPHEN 325 MG TABLET (FP) PO SCH ×3 (02:10→09:52)
[2022-11-09] MEDS: oxyCODONE HCL 5 MG TABLET PO SCH ×3 (02:11→09:51)
[2022-11-09] MEDS ORDERED: TRIMETHOBENZAMIDE HCL 200MG/2ML INJ IM PRN (02:21)
[2022-11-09] MEDS ORDERED: ALBUTEROL SO4 HFA INHALER IH PRN (02:21)
[2022-11-09] MEDS ORDERED: LIDOCAINE PATCH REMOVAL MC SCH ×2 (02:21→22:00)
[2022-11-09] MEDS ORDERED: SIMETHICONE 80 MG TAB.CHEW (FP) PO PRN (02:21)
[2022-11-09] MEDS ORDERED: GABAPENTIN 400 MG CAPSULE PO SCH (06:00)
[2022-11-09] MEDS: ALBUTEROL SO4 2.5/IPRATROPIUM 0.5 INH SOL 3 ML VIAL.NEB. NEB SCH ×3 (07:47→15:29)
[2022-11-09 09:29] LABS: HEMATOCRIT 43.7 % (32.4-45.2); HEMOGLOBIN 14.4 GM/dL (10.7-15.3); MCH 32.9 pg (25.7-33.7); MCHC 32.9 g/dl (32.0-36.0); MEAN CELL VOLUME 100.2 fl (80-96); MEAN PLT VOLUME 8.3 fl (7.5-11.1); PLATELET COUNT 211 10^3/uL (134-434); RBC 4.36 M/mm3 (3.60-5.2); RDW 13.8 % (11.6-15.6); WHITE BLOOD COUNT 9.6 K/mm3 (4.0-10.0)
[2022-11-09] MEDS: predniSONE 20 MG TABLET (UD) PO SCH (09:51)
[2022-11-09] MEDS ORDERED: PANTOPRAZOLE 40 MG TABLET PO SCH (10:00)
[2022-11-09] MEDS ORDERED: LIDOCAINE 5% TOPICAL PATCH TP SCH (10:00)
[2022-11-09] MEDS ORDERED: THEOPHYLLINE ANHYDROUS 200 MG CAP.ER.24H PO SCH (10:00)
[2022-11-09] MEDS ORDERED: FLUTICASONE/UMECLIDIN/VILANTER(200-62.5-25 TRELEGY ELLIPTA) INAHLER IH SCH (10:00)
[2022-11-09] MEDS ORDERED: METHOCARBAMOL 500 MG TABLET PO SCH (10:00)
[2022-11-09] MEDS ORDERED: FERROUS SO4 325 MG TABLET (FP) PO SCH (10:00)
[2022-11-09] MEDS ORDERED: ENOXAPARIN NA (PORCINE) 40 MG/0.4 ML DISP.SYRIN SQ SCH (10:00)
[2022-11-09] MEDS ORDERED: SENNOSIDES 8.6MG TABLET (FP) PO SCH (10:00)
[2022-11-09 10:34] LABS: CALCIUM 8.7 mg/dL (8.5-10.1)
[2022-11-09 10:35] LABS: ALBUMIN 2.6 g/dl (3.4-5.0); BLOOD UREA NITROGEN 13.1 mg/dL (7-18); MAGNESIUM 2.1 mg/dL (1.8-2.4)
[2022-11-09 10:37] LABS: CREATININE 0.8 mg/dL (0.55-1.3); PHOSPHOROUS 3.6 mg/dL (2.5-4.9)
[2022-11-09 10:38] LABS: BILIRUBIN,TOTAL 0.4 mg/dL (0.2-1); TOT PROT 5.8 g/dl (6.4-8.2)
[2022-11-09 14:31] VITALS: BP 112/68; PULSE 100; TEMP 98.7
[2022-11-09] MEDS ORDERED: MONTELUKAST NA 10 MG TABLET PO SCH (22:00)
== END 2022-11-09 16:28 | disposition home or self-care (01) | DRG 140 ==
LOC: JER 14:16 → INTOOBSV 20:03 → JERBED 20:03 → J4W 11-03 23:59 → OBSVTOIN 11-05 13:46 → J6S 11-06 16:00
PROVIDERS: ADMIT Internal Medicine; ATTEND Internal Medicine
DX: J44.1 Chronic obstructive pulmonary disease with (acute) exacerbation (principal); M87.00 Idiopathic aseptic necrosis of unspecified bone; I10 Essential (primary) hypertension; F41.9 Anxiety disorder, unspecified; F43.10 Post-traumatic stress disorder, unspecified; K59.03 Drug induced constipation; R10.9 Unspecified abdominal pain; T40.2X5A Adverse effect of other opioids, initial encounter; Y92.89 Other specified places as the place of occurrence of the external cause; R16.0 Hepatomegaly, not elsewhere classified; K76.89 Other specified diseases of liver; D72.829 Elevated white blood cell count, unspecified
CPT/HCPCS: 0241U-QW; 36415; 71045-TC-FY; 71101-TC-RT-FY; 71250-TC; 74018-TC-FY; 74176-TC; 80053; 80307; 81003; 82308; 82803; 83605; 83690; 83735; 83880; 84100; 84484; 84703; 85025; 85027; 85610; 85651; 85730; 86038; 86140; 86431; 87040; 87070; 87086; 87205; 87804; 87899; 93005; 93010; 93306-TC; 94640; 97116-GP; 97162-GP; 99285-25; G0378

== ENCOUNTER 2023-06-25 12:15 | Inpatient (IN) | payer OTHER ==
[2023-06-25] MEDS ORDERED: SODIUM CHLORIDE 500 ML IV STA (12:55)
[2023-06-25] MEDS ORDERED: FAMOTIDINE 20 MG/50 ML IVPB 20 MG/50 ML MG IVPB ONE (12:55)
[2023-06-25] MEDS ORDERED: ACETAMINOPHEN 1000 MG/100 ML BAG IVPB ONE (12:55)
[2023-06-25] MEDS ORDERED: FENTANYL CITRATE/PF 50 MCG/ML VIAL IVPUSH ONE (13:07)
[2023-06-25] MEDS ORDERED: ACETAMINOPHEN INJECTION 100 ML IVPB ONE (13:44)
[2023-06-25] MEDS ORDERED: FAMOTIDINE 10 MG/ML VIAL IVPB ONE (13:45)
[2023-06-25] MEDS ORDERED: FENTANYL CITRATE/PF 50 MCG/ML VIAL ONE (14:11)
[2023-06-25 14:27] LABS: BASO % 0.3 % (0-2.0); HEMATOCRIT 46.2 % (32.4-45.2); HEMOGLOBIN 15.8 GM/dL (10.7-15.3); LYMPH % 43.8 % (8-40); MCH 32.5 pg (25.7-33.7); MCHC 34.2 g/dl (32.0-36.0); MEAN CELL VOLUME 94.9 fl (80-96); MEAN PLT VOLUME 9.2 fl (7.5-11.1); MONO % 4.8 % (3.8-10.2); NEUT % 50.1 % (42.8-82.8); PLATELET COUNT 185 10^3/uL (134-434); RBC 4.87 M/mm3 (3.60-5.2); RDW 12.9 % (11.6-15.6); WHITE BLOOD COUNT 5.2 K/mm3 (4.0-10.0)
[2023-06-25 14:34] LABS: INR 1.05 (0.83-1.09); PROTHROMBIN TIME (PATIENT) 12.2 SEC (9.7-13.0)
[2023-06-25 14:36] LABS: ACTIVATED PTT 34.4 SECONDS (25.2-36.5)
[2023-06-25 15:02] LABS: POTASSIUM 3.3 mmol/L (3.5-5.1)
[2023-06-25 15:05] LABS: ALBUMIN 3.8 g/dl (3.4-5.0); BLOOD UREA NITROGEN 11.7 mg/dL (7-18); CALCIUM 9.2 mg/dL (8.5-10.1); MAGNESIUM 1.8 mg/dL (1.8-2.4)
[2023-06-25 15:08] LABS: CREATININE 0.9 mg/dL (0.55-1.3); TOT PROT 7.6 g/dl (6.4-8.2)
[2023-06-25 15:15] LABS: BILIRUBIN,TOTAL 0.3 mg/dL (0.2-1)
[2023-06-25] MEDS ORDERED: ONDANSETRON 4 MG/2 ML VIAL IVPUSH ONE (17:01)
[2023-06-25] MEDS ORDERED: morphine CARPU-JECT 4 MG/1 ML DISP.SYRIN IVPUSH ONE (17:02)
[2023-06-25] MEDS ORDERED: ONDANSETRON 4 MG/2 ML VIAL ONE (17:09)
[2023-06-25] MEDS ORDERED: morphine SULFATE 4 MG/ML VIAL ONE (17:09)
[2023-06-25 18:46] LABS: HCG,QUALITATIVE URINE Negative
[2023-06-25] MEDS ORDERED: POTASSIUM CHLORIDE ORAL LIQUID 20 MEQ/15 ML ONE (20:00)
[2023-06-25] MEDS ORDERED: POTASSIUM CHLORIDE ORAL LIQUID 20 MEQ/15 ML PO ONE (20:00)
[2023-06-25 20:51] LABS: URINE APPEARANCE CLEAR; URINE BILIRUBIN NEGATIVE (NEGATIVE); URINE COLOR YELLOW; URINE GLUCOSE (UA) NEGATIVE (NEGATIVE); URINE KETONE NEGATIVE (NEGATIVE)
[2023-06-25 20:52] LABS: URINE LEUK ESTERASE NEGATIVE (NEGATIVE); URINE NITRITE NEGATIVE (NEGATIVE); URINE PROTEIN N (NEGATIVE); URINE UROBILINOGEN 0.2 mg/dL (0.2-1.0)
[2023-06-25 21:14] LABS: OPIATES, URI NEGATIVE (NEGATIVE); PHENCYCLIDINE,URINE NEGATIVE (NEGATIVE); URINE BARBITURATES NEGATIVE (NEGATIVE)
[2023-06-25 21:16] LABS: METHADONE, UR NEGATIVE (NEGATIVE); URINE AMPHETAMINES NEGATIVE (NEGATIVE)
[2023-06-25 21:19] LABS: COCAINE, UR POSITIVE (NEGATIVE); URINE BENZODIAZEPINES NEGATIVE (NEGATIVE)
[2023-06-25] MEDS ORDERED: ALBUTEROL SO4 0.083% IH SOL 2.5 MG/3 ML VIAL.NEB. NEB PRN (22:57)
[2023-06-25] MEDS ORDERED: PATIENT'S OWN MEDICATION (NON-FORMULARY) (Naproxen/Esomeprazole Mag [Naproxen-Esomepraz Dr PO PRN (22:57)
[2023-06-25] MEDS ORDERED: PATIENT'S OWN MEDICATION (NON-FORMULARY) (Meloxicam 15 MG Tablet) PO PRN (22:57)
[2023-06-26 00:26] VITALS: BMI 26.9
[2023-06-26] MEDS: GABAPENTIN 400 MG CAPSULE PO SCH ×3 (05:42→21:59)
[2023-06-26] MEDS ORDERED: ALBUTEROL SO4 HFA INHALER IH PRN (07:40)
[2023-06-26] MEDS: ENOXAPARIN NA (PORCINE) 40 MG/0.4 ML DISP.SYRIN SQ SCH (09:22)
[2023-06-26] MEDS: oxyCODONE HCL 5 MG TABLET PO PRN ×2 (09:22→18:39)
[2023-06-26] MEDS: PANTOPRAZOLE 40 MG TABLET PO SCH (09:23)
[2023-06-26] MEDS: FERROUS SO4 325 MG TABLET (FP) PO SCH (09:23)
[2023-06-26] MEDS: METHOCARBAMOL 500 MG TABLET PO SCH (09:23)
[2023-06-26] MEDS: DULoxetine HCL 30 MG CAPSULE.DR PO SCH (09:23)
[2023-06-26] MEDS: ACETAMINOPHEN 325 MG TABLET (FP) PO PRN ×2 (09:24→18:38)
[2023-06-26] MEDS: MONTELUKAST NA 10 MG TABLET PO SCH (09:25)
[2023-06-26] MEDS ORDERED: POLYETHYLENE GLYCOL (HEALTHYLAX) 3350 17 GM PACKET PO PRN (10:42)
[2023-06-26] MEDS ORDERED: CHLORZOXAZONE 375 MG PO PRN (11:00)
[2023-06-26] MEDS ORDERED: METHYLNALTREXONE BROMIDE 8 MG/0.4 ML SYRINGE SQ ONE (11:00)
[2023-06-26] MEDS: THEOPHYLLINE ANHYDROUS 200 MG CAP.ER.24H PO SCH (12:47)
[2023-06-26] MEDS: FLUTICASONE/UMECLIDIN/VILANTER(200-62.5-25 TRELEGY ELLIPTA) INAHLER IH SCH (12:47)
[2023-06-27] MEDS: oxyCODONE HCL 5 MG TABLET PO PRN ×3 (02:45→18:52)
[2023-06-27] MEDS: ACETAMINOPHEN 325 MG TABLET (FP) PO PRN (02:45)
[2023-06-27] MEDS: GABAPENTIN 400 MG CAPSULE PO SCH ×3 (05:45→22:09)
[2023-06-27] MEDS: PANTOPRAZOLE 40 MG TABLET PO SCH (10:31)
[2023-06-27] MEDS: DULoxetine HCL 30 MG CAPSULE.DR PO SCH (10:31)
[2023-06-27] MEDS: FERROUS SO4 325 MG TABLET (FP) PO SCH (10:31)
[2023-06-27] MEDS: ENOXAPARIN NA (PORCINE) 40 MG/0.4 ML DISP.SYRIN SQ SCH (10:31)
[2023-06-27] MEDS: MONTELUKAST NA 10 MG TABLET PO SCH (10:32)
[2023-06-27] MEDS: METHOCARBAMOL 500 MG TABLET PO SCH (10:32)
[2023-06-27] MEDS: THEOPHYLLINE ANHYDROUS 200 MG CAP.ER.24H PO SCH (10:32)
[2023-06-27] MEDS: FLUTICASONE/UMECLIDIN/VILANTER(200-62.5-25 TRELEGY ELLIPTA) INAHLER IH SCH (10:38)
[2023-06-27 11:16] LABS: POTASSIUM 5.2 mmol/L (3.5-5.1)
[2023-06-27 11:18] LABS: CALCIUM 9.2 mg/dL (8.5-10.1)
[2023-06-27 11:19] LABS: BLOOD UREA NITROGEN 13.2 mg/dL (7-18)
[2023-06-27 11:22] LABS: CREATININE 0.8 mg/dL (0.55-1.3)
[2023-06-27] MEDS ORDERED: SODIUM ZIRCONIUM CYCLOSILICATE (LOKELMA) 5 GM PACKET PO SCH (12:15)
[2023-06-27] MEDS ORDERED: REMDESIVIR 200 MG in SODIUM CHLORIDE 250 ML IVPB ONE (13:00)
[2023-06-27 16:19] LABS: HEMATOCRIT 42.8 % (32.4-45.2); HEMOGLOBIN 14.6 GM/dL (10.7-15.3); MCH 32.4 pg (25.7-33.7); MEAN CELL VOLUME 95.3 fl (80-96); MEAN PLT VOLUME 8.9 fl (7.5-11.1); PLATELET COUNT 198 10^3/uL (134-434); RBC 4.49 M/mm3 (3.60-5.2); RDW 12.8 % (11.6-15.6); WHITE BLOOD COUNT 4.4 K/mm3 (4.0-10.0)
[2023-06-27] MEDS: DEXAMETHASONE SOD PHOSPHATE 4 MG/1 ML VIAL IVPUSH SCH (18:51)
[2023-06-28] MEDS: oxyCODONE HCL 5 MG TABLET PO PRN ×3 (02:58→19:00)
[2023-06-28] MEDS: GABAPENTIN 400 MG CAPSULE PO SCH ×3 (07:00→22:33)
[2023-06-28 09:06] LABS: HEMATOCRIT 41.2 % (32.4-45.2); HEMOGLOBIN 14.7 GM/dL (10.7-15.3); LYMPH % 19.4 % (8-40); MCH 33.2 pg (25.7-33.7); MCHC 35.8 g/dl (32.0-36.0); MEAN CELL VOLUME 92.8 fl (80-96); MEAN PLT VOLUME 8.8 fl (7.5-11.1); NEUT % 78.6 % (42.8-82.8); PLATELET COUNT 229 10^3/uL (134-434); RBC 4.44 M/mm3 (3.60-5.2); RDW 13.1 % (11.6-15.6)
[2023-06-28 09:25] LABS: CHLORIDE 108 mmol/L (98-107); POTASSIUM 4.3 mmol/L (3.5-5.1); SODIUM 142 mmol/L (136-145)
[2023-06-28 09:27] LABS: ANION GAP 5 MMOL/L (8-16); BLOOD UREA NITROGEN 14.1 mg/dL (7-18); CALCIUM 9.2 mg/dL (8.5-10.1); CO2 29 mmol/L (21-32); GLUCOSE,RANDOM 92 mg/dL (74-106); MAGNESIUM 1.6 mg/dL (1.8-2.4)
[2023-06-28 09:31] LABS: CREATININE 0.8 mg/dL (0.55-1.3)
[2023-06-28] MEDS: METHOCARBAMOL 500 MG TABLET PO SCH (10:03)
[2023-06-28] MEDS: PANTOPRAZOLE 40 MG TABLET PO SCH (10:04)
[2023-06-28] MEDS: FERROUS SO4 325 MG TABLET (FP) PO SCH (10:04)
[2023-06-28] MEDS: ENOXAPARIN NA (PORCINE) 40 MG/0.4 ML DISP.SYRIN SQ SCH (10:04)
[2023-06-28] MEDS: DULoxetine HCL 30 MG CAPSULE.DR PO SCH (10:04)
[2023-06-28] MEDS: MONTELUKAST NA 10 MG TABLET PO SCH (10:04)
[2023-06-28] MEDS: THEOPHYLLINE ANHYDROUS 200 MG CAP.ER.24H PO SCH (10:05)
[2023-06-28] MEDS: FLUTICASONE/UMECLIDIN/VILANTER(200-62.5-25 TRELEGY ELLIPTA) INAHLER IH SCH (10:05)
[2023-06-28] MEDS: DEXAMETHASONE SOD PHOSPHATE 4 MG/1 ML VIAL IVPUSH SCH (11:00)
[2023-06-28] MEDS ORDERED: REMDESIVIR 100 MG in SODIUM CHLORIDE 250 ML IVPB SCH ×3 (13:00→18:00)
[2023-06-28 15:02] VITALS: RESP 20
[2023-06-28] MEDS: ACETAMINOPHEN 325 MG TABLET (FP) PO PRN (19:01)
[2023-06-29] MEDS: oxyCODONE HCL 5 MG TABLET PO PRN ×3 (01:59→17:47)
[2023-06-29] MEDS: GABAPENTIN 400 MG CAPSULE PO SCH ×2 (06:21→13:48)
[2023-06-29 09:32] LABS: BASO % 0.1 % (0-2.0); HEMATOCRIT 40.8 % (32.4-45.2); HEMOGLOBIN 14.2 GM/dL (10.7-15.3); MCH 32.7 pg (25.7-33.7); MCHC 34.9 g/dl (32.0-36.0); MEAN CELL VOLUME 93.6 fl (80-96); MEAN PLT VOLUME 8.7 fl (7.5-11.1); MONO % 3.4 % (3.8-10.2); NEUT % 81.5 % (42.8-82.8); PLATELET COUNT 215 10^3/uL (134-434); RBC 4.35 M/mm3 (3.60-5.2); RDW 13.2 % (11.6-15.6); WHITE BLOOD COUNT 9.1 K/mm3 (4.0-10.0)
[2023-06-29 09:58] LABS: CHLORIDE 106 mmol/L (98-107); POTASSIUM 4.1 mmol/L (3.5-5.1); SODIUM 144 mmol/L (136-145)
[2023-06-29 10:01] LABS: CALCIUM 8.8 mg/dL (8.5-10.1)
[2023-06-29 10:02] LABS: ALBUMIN 3.4 g/dl (3.4-5.0); ANION GAP 6 MMOL/L (8-16); BLOOD UREA NITROGEN 13.2 mg/dL (7-18); CO2 32 mmol/L (21-32); GLUCOSE,RANDOM 115 mg/dL (74-106)
[2023-06-29 10:05] LABS: CREATININE 0.8 mg/dL (0.55-1.3); SGOT/AST 15 U/L (15-37); SGPT/ALT 27 U/L (13-61)
[2023-06-29 10:06] LABS: ALK PHOS 38 U/L (45-117)
[2023-06-29] MEDS: DULoxetine HCL 30 MG CAPSULE.DR PO SCH (10:06)
[2023-06-29] MEDS: ENOXAPARIN NA (PORCINE) 40 MG/0.4 ML DISP.SYRIN SQ SCH (10:06)
[2023-06-29] MEDS: FERROUS SO4 325 MG TABLET (FP) PO SCH (10:06)
[2023-06-29] MEDS: PANTOPRAZOLE 40 MG TABLET PO SCH (10:06)
[2023-06-29] MEDS: METHOCARBAMOL 500 MG TABLET PO SCH (10:06)
[2023-06-29] MEDS: MONTELUKAST NA 10 MG TABLET PO SCH (10:06)
[2023-06-29 10:07] LABS: BILIRUBIN,TOTAL 0.7 mg/dL (0.2-1); TOT PROT 6.6 g/dl (6.4-8.2)
[2023-06-29] MEDS: DEXAMETHASONE SOD PHOSPHATE 4 MG/1 ML VIAL IVPUSH SCH (10:07)
[2023-06-29] MEDS: THEOPHYLLINE ANHYDROUS 200 MG CAP.ER.24H PO SCH (10:07)
[2023-06-29] MEDS: FLUTICASONE/UMECLIDIN/VILANTER(200-62.5-25 TRELEGY ELLIPTA) INAHLER IH SCH (10:12)
[2023-06-29] MEDS: ACETAMINOPHEN 325 MG TABLET (FP) PO PRN (10:27)
[2023-06-29 14:52] VITALS: BP 112/46; PULSE 64; TEMP 98.8
[2023-06-29] MEDS ORDERED: REMDESIVIR 100 MG in SODIUM CHLORIDE 250 ML IVPB SCH (15:00)
[2023-06-30] MEDS ORDERED: DEXAMETHASONE 4 MG TABLET (FP) PO SCH (10:00)
== END 2023-06-29 18:05 | disposition home or self-care (01) | DRG 137 ==
LOC: JER 12:15 → JERBED 17:03 → J6S 23:50 → OBSVTOIN 06-26 05:30 → J7W 06-26 10:07
PROVIDERS: ADMIT Internal Medicine; ATTEND Nurse Practitioner Family
PROC: XW033E5 Introduction of Remdesivir Anti-infective into Peripheral Vein, Percutaneous Approach, New Technology Group 5 (ICD-10-PCS; principal; 2023-06-26)
DX: U07.1 COVID-19 (principal); K56.7 Ileus, unspecified; F12.90 Cannabis use, unspecified, uncomplicated; F43.10 Post-traumatic stress disorder, unspecified; M54.9 Dorsalgia, unspecified; R91.1 Solitary pulmonary nodule; J96.10 Chronic respiratory failure, unspecified whether with hypoxia or hypercapnia; R10.9 Unspecified abdominal pain; J44.9 Chronic obstructive pulmonary disease, unspecified
CPT/HCPCS: 0241U-QW; 36415; 71250-TC; 74174-TC; 76705-TC; 80048; 80053; 80307; 81003; 83605; 83690; 83735; 84703; 85025; 85027; 85610; 85730; 86140; 86850; 86900; 86901; 87086; 93005; 93010; 93971-TC; 94761; 97161-GP; 99285-25; C9399; G0378

== ENCOUNTER 2024-11-24 16:11 | Inpatient (IN) | payer OTHER ==
[2024-11-24 16:26] VITALS: BMI 26.1
[2024-11-24 18:05] LABS: BASO % 0.6 % (0-2.0); EOS % 4.1 % (0-4.5); HEMATOCRIT 25.8 % (32.4-45.2); HEMOGLOBIN 8.8 GM/dL (10.7-15.3); LYMPH % 35.3 % (8-40); MCH 31.2 pg (25.7-33.7); MCHC 34.1 g/dl (32.0-36.0); MEAN CELL VOLUME 91.6 fl (80-96); MEAN PLT VOLUME 8.9 fl (7.5-11.1); MONO % 6.3 % (3.8-10.2); NEUT % 53.7 % (42.8-82.8); PLATELET COUNT 255 10^3/uL (134-434); RBC 2.81 M/mm3 (3.60-5.2); RDW 15.2 % (11.6-15.6); WHITE BLOOD COUNT 9.2 K/mm3 (4.0-10.0)
[2024-11-24] MEDS ORDERED: ACETAMINOPHEN INJECTION 100 ML ONE (18:07)
[2024-11-24 18:11] LABS: INR 1.18 (0.83-1.09)
[2024-11-24 18:14] LABS: ACTIVATED PTT 33.4 SECONDS (25.2-36.5)
[2024-11-24] MEDS: ACETAMINOPHEN 1000 MG/100 ML BAG IVPB ONE (18:14)
[2024-11-24 18:17] LABS: POTASSIUM 3.2 mmol/L (3.5-5.1)
[2024-11-24 18:19] LABS: CALCIUM 8.8 mg/dL (8.5-10.1)
[2024-11-24 18:20] LABS: ALBUMIN 2.6 g/dl (3.4-5.0); BLOOD UREA NITROGEN 12.9 mg/dL (7-18)
[2024-11-24] MEDS ORDERED: HYDROmorphone HCL CARPU-JECT 2 MG/1 ML DISP.SYRIN ONE (18:20)
[2024-11-24 18:24] LABS: BILIRUBIN,TOTAL 0.2 mg/dL (0.2-1); TOT PROT 7.6 g/dl (6.4-8.2)
[2024-11-24] MEDS: HYDROmorphone HCl 2 MG/ML VIAL IVPUSH ONE (18:40)
[2024-11-24 19:13] LABS: HIV INTERPRETATION NEGATIVE (NEGATIVE)
[2024-11-24 20:34] LABS: URINE APPEARANCE CLEAR; URINE BILIRUBIN NEGATIVE (NEGATIVE); URINE COLOR YELLOW; URINE GLUCOSE (UA) NEGATIVE (NEGATIVE); URINE KETONE NEGATIVE (NEGATIVE); URINE LEUK ESTERASE NEGATIVE (NEGATIVE); URINE NITRITE NEGATIVE (NEGATIVE); URINE PROTEIN TRACE (NEGATIVE); URINE UROBILINOGEN 0.2 mg/dL (0.2-1.0)
[2024-11-24] MEDS ORDERED: PIPERACILLIN/TAZOB 3.375 GM 3.375 GM/50 ML BAG IVPB ONE (20:55)
[2024-11-24] MEDS: PIPERACILLIN/TAZOB 3.375 GM 3.375 GM in DEXTROSE 5%-WATER - 50 ML IVPB ONE (21:44)
[2024-11-24] MEDS ORDERED: POTASSIUM CHLORIDE ORAL LIQUID 20 MEQ/15 ML ONE (22:30)
[2024-11-24] MEDS: POTASSIUM CHLORIDE ORAL LIQUID 20 MEQ/15 ML PO ONE (22:33)
[2024-11-24] MEDS: POTASSIUM CHLORIDE 40 MEQ in SODIUM CHLORIDE 1,000 ML IV SCH (23:07)
[2024-11-25 00:17] LABS: ERYTHROCYTE SEDIMENTATION RATE 121 mm/hr (0-30)
[2024-11-25] MEDS: oxyCODONE HCL 5 MG TABLET PO ONE (01:15)
[2024-11-25] MEDS ORDERED: ACETAMINOPHEN 1000 MG/100 ML BAG IVPB PRN (01:24)
[2024-11-25] MEDS ORDERED: ALBUTEROL SO4 HFA INHALER IH PRN (03:34)
[2024-11-25] MEDS: GABAPENTIN 400 MG CAPSULE PO SCH (06:33)
[2024-11-25] MEDS: oxyCODONE HCL 5 MG TABLET PO PRN ×2 (10:21→16:38)
[2024-11-25] MEDS ORDERED: MIDAZOLAM HCL 2 MG/2 ML SINGLE DOSE VIAL ONE (11:08)
[2024-11-25] MEDS ORDERED: FENTANYL CITRATE/PF 50 MCG/ML VIAL ONE (11:09)
[2024-11-25] MEDS: FENTANYL CITRATE/PF 50 MCG/ML VIAL IVPUSH ONE ×3 (11:47→11:55)
[2024-11-25] MEDS: MIDAZOLAM HCL 2 MG/2 ML SINGLE DOSE VIAL IVPUSH ONE ×2 (11:47→11:50)
[2024-11-25] MEDS: SODIUM CHLORIDE 500 ML IV ONE (12:00)
[2024-11-25] MEDS: THEOPHYLLINE ANHYDROUS 200 MG CAP.ER.24H PO SCH (13:02)
[2024-11-25] MEDS: FLUTICASONE/UMECLIDIN/VILANTER(200-62.5-25 TRELEGY ELLIPTA) INAHLER IH SCH (13:02)
[2024-11-25] MEDS: SERTRALINE HCL 25 MG TABLET (FP) PO SCH (13:02)
[2024-11-25] MEDS: PANTOPRAZOLE 40 MG TABLET PO SCH (13:02)
[2024-11-25] MEDS: busPIRone HCL 5 MG TABLET PO SCH (13:02)
[2024-11-25] MEDS: PIPERACILLIN/TAZOB 3.375 GM 50 ML IVPB SCH (13:03)
[2024-11-25 14:58] LABS: HEMATOCRIT 27.1 % (32.4-45.2); HEMOGLOBIN 9.1 GM/dL (10.7-15.3); MCH 30.9 pg (25.7-33.7); MCHC 33.5 g/dl (32.0-36.0); MEAN CELL VOLUME 92.1 fl (80-96); MEAN PLT VOLUME 8.4 fl (7.5-11.1); PLATELET COUNT 243 10^3/uL (134-434); RBC 2.94 M/mm3 (3.60-5.2); RDW 14.9 % (11.6-15.6); WHITE BLOOD COUNT 7.3 K/mm3 (4.0-10.0)
[2024-11-25 15:16] LABS: POTASSIUM 3.5 mmol/L (3.5-5.1)
[2024-11-25 15:19] LABS: BLOOD UREA NITROGEN 7.7 mg/dL (7-18); CALCIUM 8.7 mg/dL (8.5-10.1); MAGNESIUM 1.4 mg/dL (1.8-2.4)
[2024-11-25 15:20] LABS: ALBUMIN 2.4 g/dl (3.4-5.0)
[2024-11-25 15:23] LABS: BILIRUBIN,TOTAL 0.4 mg/dL (0.2-1); PHOSPHOROUS 3.6 mg/dL (2.5-4.9); TOT PROT 7.1 g/dl (6.4-8.2)
[2024-11-25] MEDS: POTASSIUM CHLORIDE ORAL LIQUID 20 MEQ/15 ML PO ONE (17:20)
[2024-11-25] MEDS: MAGNESIUM 2GM/50ML STERILE WATER IVPB IVPB ONE (17:20)
[2024-11-25] MEDS: POTASSIUM CHLORIDE 40 MEQ in SODIUM CHLORIDE 1,000 ML IV SCH (17:23)
[2024-11-25] MEDS: MONTELUKAST NA 10 MG TABLET PO SCH (21:06)
[2024-11-25] MEDS: MAGNESIUM OXIDE 400 MG TABLET (FP) PO SCH (21:58)
[2024-11-26 07:25] VITALS: RESP 18
[2024-11-26] MEDS: PIPERACILLIN/TAZOB 3.375 GM 3.375 GM in DEXTROSE 5%-WATER - 50 ML IVPB SCH (07:38)
[2024-11-26 08:16] LABS: POTASSIUM 3.3 mmol/L (3.5-5.1)
[2024-11-26 08:24] LABS: ALBUMIN 2.3 g/dl (3.4-5.0); BLOOD UREA NITROGEN 9.2 mg/dL (7-18); CALCIUM 8.4 mg/dL (8.5-10.1)
[2024-11-26 08:25] LABS: MAGNESIUM 1.2 mg/dL (1.8-2.4)
[2024-11-26 08:28] LABS: PHOSPHOROUS 4.2 mg/dL (2.5-4.9)
[2024-11-26 08:29] LABS: BILIRUBIN,TOTAL 0.4 mg/dL (0.2-1); TOT PROT 6.9 g/dl (6.4-8.2)
[2024-11-26] MEDS ORDERED: POLYETHYLENE GLYCOL (HEALTHYLAX) 3350 17 GM PACKET PO SCH (18:15)
[2024-11-26] MEDS: MAGNESIUM SULFATE IN WATER 2 GM/50 ML IVPB IVPB ONE (19:16)
[2024-11-26] MEDS: POTASSIUM CHLORIDE ORAL LIQUID 20 MEQ/15 ML PO ONE (19:17)
[2024-11-26 22:28] LABS: POTASSIUM 3.7 mmol/L (3.5-5.1)
[2024-11-26 22:30] LABS: MAGNESIUM 2.1 mg/dL (1.8-2.4)
[2024-11-26] MEDS: ACETAMINOPHEN 325 MG TABLET (FP) PO PRN (23:34)
[2024-11-26] MEDS: PIPERACILLIN/TAZOB 4.5 GM 4.5 GM/100 ML BAG IVPB SCH (23:43)
[2024-11-27] MEDS ORDERED: PIPERACILLIN/TAZOB 3.375 GM 50 ML IVPB SCH (02:00)
[2024-11-27 10:05] LABS: HEMATOCRIT 26.4 % (32.4-45.2); HEMOGLOBIN 8.7 GM/dL (10.7-15.3); MCH 30.4 pg (25.7-33.7); MCHC 33.1 g/dl (32.0-36.0); MEAN CELL VOLUME 91.9 fl (80-96); MEAN PLT VOLUME 8.3 fl (7.5-11.1); PLATELET COUNT 266 10^3/uL (134-434); RBC 2.87 M/mm3 (3.60-5.2); RDW 14.8 % (11.6-15.6); WHITE BLOOD COUNT 8.6 K/mm3 (4.0-10.0)
[2024-11-27 10:16] LABS: POTASSIUM 3.9 mmol/L (3.5-5.1)
[2024-11-27 10:18] LABS: ALBUMIN 2.5 g/dl (3.4-5.0); BLOOD UREA NITROGEN 9.9 mg/dL (7-18); CALCIUM 8.9 mg/dL (8.5-10.1); MAGNESIUM 1.7 mg/dL (1.8-2.4)
[2024-11-27 10:21] LABS: CREATININE 1.1 mg/dL (0.55-1.3); PHOSPHOROUS 3.4 mg/dL (2.5-4.9)
[2024-11-27 10:23] LABS: BILIRUBIN,TOTAL 0.3 mg/dL (0.2-1); TOT PROT 7.2 g/dl (6.4-8.2)
[2024-11-27] MEDS: MAGNESIUM OXIDE 400 MG TABLET (FP) PO SCH (12:11)
[2024-11-27] MEDS: hydrOXYzine PAMOATE 25 MG CAPSULE (FP) PO PRN (12:27)
[2024-11-27] MEDS: HEPARIN NA (PORCINE) 5,000 UNITS/ML 1ML VIAL SQ SCH (21:42)
[2024-11-28 09:14] LABS: HEMATOCRIT 27.8 % (32.4-45.2); HEMOGLOBIN 9.2 GM/dL (10.7-15.3); MCH 30.6 pg (25.7-33.7); MCHC 33.2 g/dl (32.0-36.0); MEAN CELL VOLUME 92.3 fl (80-96); MEAN PLT VOLUME 8.2 fl (7.5-11.1); PLATELET COUNT 258 10^3/uL (134-434); RBC 3.01 M/mm3 (3.60-5.2); RDW 14.5 % (11.6-15.6); WHITE BLOOD COUNT 7.4 K/mm3 (4.0-10.0)
[2024-11-28 09:46] LABS: POTASSIUM 3.6 mmol/L (3.5-5.1)
[2024-11-28 09:55] LABS: CALCIUM 9.1 mg/dL (8.5-10.1)
[2024-11-28 09:56] LABS: ALBUMIN 2.5 g/dl (3.4-5.0); BLOOD UREA NITROGEN 8.8 mg/dL (7-18); MAGNESIUM 1.6 mg/dL (1.8-2.4); PHOSPHOROUS 3.5 mg/dL (2.5-4.9)
[2024-11-28 09:57] LABS: BILIRUBIN,TOTAL 0.4 mg/dL (0.2-1); TOT PROT 7.4 g/dl (6.4-8.2)
[2024-11-28] MEDS: MAGNESIUM 1GM/D5W - 1 GM/100 ML IVPB IVPB ONE (11:38)
[2024-11-28 12:00] VITALS: BP 104/66; PULSE 74; TEMP 98.4
== END 2024-11-28 14:00 | disposition home health service (06) | DRG 721 ==
LOC: JER 16:11 → JERBED 20:37 → J7W 11-25 00:58
PROVIDERS: ADMIT Internal Medicine; ATTEND Physician Assistant
PROC: 0W9G30Z Drainage of Peritoneal Cavity with Drainage Device, Percutaneous Approach (ICD-10-PCS; principal; 2024-11-25)
DX: T81.41XA Infection following a procedure, superficial incisional surgical site, initial encounter (principal); K65.1 Peritoneal abscess; Z99.81 Dependence on supplemental oxygen; E83.42 Hypomagnesemia; F41.8 Other specified anxiety disorders; F43.10 Post-traumatic stress disorder, unspecified; J44.9 Chronic obstructive pulmonary disease, unspecified; M25.551 Pain in right hip; M54.9 Dorsalgia, unspecified; R91.8 Other nonspecific abnormal finding of lung field; E87.6 Hypokalemia; F12.90 Cannabis use, unspecified, uncomplicated; D64.9 Anemia, unspecified; Y83.8 Other surgical procedures as the cause of abnormal reaction of the patient, or of later complication, without mention of misadventure at the time of the procedure
CPT/HCPCS: 36415; 49406; 73502-TC-LT-FY; 73552-TC-LT-FY; 74177-TC; 80053; 81003; 82962; 83735; 84100; 84132; 85025; 85027; 85610; 85651; 85730; 86140; 86803; 86850; 86900; 86901; 87070; 87075; 87086; 87102; 87116; 87205; 87206; 87210; 87389; 93005; 93010; 99285-25; J0131

== ENCOUNTER 2024-12-08 15:26 | Observation (INO) | payer OTHER ==
[2024-12-08 18:12] LABS: BASO % 0.5 % (0-2.0); EOS % 3.3 % (0-4.5); HEMATOCRIT 30.4 % (32.4-45.2); HEMOGLOBIN 10.3 GM/dL (10.7-15.3); LYMPH % 41.1 % (8-40); MCH 31.2 pg (25.7-33.7); MEAN CELL VOLUME 91.9 fl (80-96); MEAN PLT VOLUME 7.8 fl (7.5-11.1); MONO % 5.7 % (3.8-10.2); NEUT % 49.4 % (42.8-82.8); PLATELET COUNT 354 10^3/uL (134-434); RDW 15.5 % (11.6-15.6); WHITE BLOOD COUNT 8.2 K/mm3 (4.0-10.0)
[2024-12-08 18:23] LABS: INR 1.11 (0.83-1.09); PROTHROMBIN TIME (PATIENT) 12.1 SEC (9.7-13.0)
[2024-12-08 18:26] LABS: ACTIVATED PTT 27.9 SECONDS (25.2-36.5)
[2024-12-08 18:27] LABS: CHLORIDE 105 mmol/L (98-107); SODIUM 137 mmol/L (136-145)
[2024-12-08] MEDS: SODIUM CHLORIDE 0.9% 500 ML INFUS.BAG IV ONE (18:28)
[2024-12-08 18:30] LABS: ALBUMIN 2.7 g/dl (3.4-5.0); BLOOD UREA NITROGEN 7.9 mg/dL (7-18); CO2 26 mmol/L (21-32); GLUCOSE,RANDOM 94 mg/dL (74-106)
[2024-12-08] MEDS ORDERED: MORPHINE SULFATE 2 MG/ML SYRINGE ONE (18:30)
[2024-12-08 18:31] LABS: MAGNESIUM 1.4 mg/dL (1.8-2.4)
[2024-12-08 18:33] LABS: CREATININE 0.8 mg/dL (0.55-1.3); SGOT/AST 67 U/L (15-37); SGPT/ALT 17 U/L (13-61)
[2024-12-08 18:34] LABS: BILIRUBIN,TOTAL 0.3 mg/dL (0.2-1); TOT PROT 8.5 g/dl (6.4-8.2)
[2024-12-08 18:36] LABS: ALK PHOS 67 U/L (45-117)
[2024-12-08] MEDS: morphine SULFATE 4 MG/ML VIAL IVPUSH ONE (18:46)
[2024-12-08 18:54] LABS: ANION GAP 6 mmol/L (4-13); POTASSIUM 6.3 mmol/L (3.5-5.1)
[2024-12-08 19:23] LABS: HIV INTERPRETATION NEGATIVE (NEGATIVE)
[2024-12-08] MEDS ORDERED: MAGNESIUM SULFATE IN WATER 2 GM/50 ML IVPB IVPB ONE (19:46)
[2024-12-08] MEDS: MAGNESIUM SULFATE IN WATER 2 GM/50 ML IVPB IVPB ONE (19:55)
[2024-12-08] MEDS ORDERED: morphine CARPU-JECT 4 MG/1 ML DISP.SYRIN IVPUSH ONE (22:19)
[2024-12-08] MEDS ORDERED: HYDROmorphone HCL CARPU-JECT 2 MG/1 ML DISP.SYRIN ONE (22:34)
[2024-12-08] MEDS: HYDROmorphone HCl 2 MG/ML VIAL IVPUSH ONE (22:47)
[2024-12-08 23:14] LABS: POTASSIUM 3.3 mmol/L (3.5-5.1)
[2024-12-08 23:15] LABS: CALCIUM 9.1 mg/dL (8.5-10.1)
[2024-12-08 23:16] LABS: BLOOD UREA NITROGEN 7.9 mg/dL (7-18)
[2024-12-08 23:19] LABS: CREATININE 0.9 mg/dL (0.55-1.3)
[2024-12-09] MEDS ORDERED: HYDROmorphone HCL CARPU-JECT 2 MG/1 ML DISP.SYRIN ONE ×2 (03:52→06:02)
[2024-12-09] MEDS: HYDROmorphone HCl 2 MG/ML VIAL IVPUSH ONE (04:12)
[2024-12-09] MEDS: HYDROmorphone HCL CARPU-JECT 2 MG/1 ML DISP.SYRIN IVPUSH ONE ×2 (06:20→11:47)
[2024-12-09] MEDS ORDERED: ALBUTEROL SO4 HFA INHALER IH PRN (06:23)
[2024-12-09] MEDS ORDERED: POTASSIUM CHLORIDE ORAL LIQUID 20 MEQ/15 ML ONE (06:38)
[2024-12-09] MEDS ORDERED: GABAPENTIN 400 MG CAPSULE ONE (06:38)
[2024-12-09] MEDS: GABAPENTIN 400 MG CAPSULE PO SCH (06:51)
[2024-12-09] MEDS: POTASSIUM CHLORIDE ORAL LIQUID 20 MEQ/15 ML PO ONE (06:51)
[2024-12-09] MEDS: MAGNESIUM OXIDE 400 MG TABLET (FP) PO SCH (10:34)
[2024-12-09] MEDS: FLUTICASONE/UMECLIDIN/VILANTER(200-62.5-25 TRELEGY ELLIPTA) INAHLER IH SCH (10:34)
[2024-12-09] MEDS: PANTOPRAZOLE 40 MG TABLET PO SCH (10:34)
[2024-12-09] MEDS: busPIRone HCL 5 MG TABLET PO SCH (10:34)
[2024-12-09] MEDS: HYDROmorphone HCL CARPU-JECT 2 MG/1 ML DISP.SYRIN IVPB PRN (10:34)
[2024-12-09] MEDS: SERTRALINE HCL 25 MG TABLET (FP) PO SCH (10:34)
[2024-12-09 11:40] VITALS: BMI 25.2
[2024-12-09 12:50] LABS: BASO % 0.4 % (0-2.0); EOS % 3.5 % (0-4.5); HEMATOCRIT 29.5 % (32.4-45.2); HEMOGLOBIN 10.2 GM/dL (10.7-15.3); LYMPH % 27.5 % (8-40); MCH 31.3 pg (25.7-33.7); MCHC 34.5 g/dl (32.0-36.0); MEAN CELL VOLUME 90.7 fl (80-96); MEAN PLT VOLUME 8.1 fl (7.5-11.1); MONO % 5.4 % (3.8-10.2); NEUT % 63.2 % (42.8-82.8); PLATELET COUNT 340 10^3/uL (134-434); RBC 3.25 M/mm3 (3.60-5.2); RDW 14.6 % (11.6-15.6); WHITE BLOOD COUNT 6.1 K/mm3 (4.0-10.0)
[2024-12-09 13:08] LABS: POTASSIUM 3.6 mmol/L (3.5-5.1)
[2024-12-09 13:12] LABS: CALCIUM 8.7 mg/dL (8.5-10.1)
[2024-12-09 13:13] LABS: ALBUMIN 2.6 g/dl (3.4-5.0); BLOOD UREA NITROGEN 3.7 mg/dL (7-18); MAGNESIUM 1.7 mg/dL (1.8-2.4)
[2024-12-09 13:16] LABS: CREATININE 0.7 mg/dL (0.55-1.3); PHOSPHOROUS 4.1 mg/dL (2.5-4.9)
[2024-12-09 13:17] LABS: BILIRUBIN,TOTAL 0.2 mg/dL (0.2-1); TOT PROT 7.3 g/dl (6.4-8.2)
[2024-12-09] MEDS: THEOPHYLLINE ANHYDROUS 200 MG CAP.ER.24H PO SCH (14:45)
[2024-12-09] MEDS: MONTELUKAST NA 10 MG TABLET PO SCH (21:30)
[2024-12-10] MEDS: MAGNESIUM 1GM/D5W - 1 GM/100 ML IVPB IVPB ONE (00:31)
[2024-12-10 09:29] LABS: HEMATOCRIT 28.3 % (32.4-45.2); HEMOGLOBIN 9.7 GM/dL (10.7-15.3); MCH 31.4 pg (25.7-33.7); MCHC 34.2 g/dl (32.0-36.0); MEAN CELL VOLUME 91.8 fl (80-96); MEAN PLT VOLUME 8.4 fl (7.5-11.1); PLATELET COUNT 294 10^3/uL (134-434); RBC 3.08 M/mm3 (3.60-5.2); RDW 14.8 % (11.6-15.6); WHITE BLOOD COUNT 5.7 K/mm3 (4.0-10.0)
[2024-12-10] MEDS: oxyCODONE HCL 5 MG TABLET PO PRN (09:38)
[2024-12-10 10:01] LABS: POTASSIUM 3.7 mmol/L (3.5-5.1)
[2024-12-10 10:18] LABS: ALBUMIN 2.5 g/dl (3.4-5.0)
[2024-12-10 10:19] LABS: CALCIUM 9.1 mg/dL (8.5-10.1)
[2024-12-10 10:20] LABS: BILIRUBIN,TOTAL 0.2 mg/dL (0.2-1); BLOOD UREA NITROGEN 6.8 mg/dL (7-18); MAGNESIUM 1.5 mg/dL (1.8-2.4); TOT PROT 7.1 g/dl (6.4-8.2)
[2024-12-10 10:21] LABS: CREATININE 0.7 mg/dL (0.55-1.3)
[2024-12-10 10:22] LABS: PHOSPHOROUS 4.1 mg/dL (2.5-4.9)
[2024-12-10] MEDS: MAGNESIUM SULFATE IN WATER 2 GM/50 ML IVPB IVPB ONE (13:35)
[2024-12-10] MEDS: MAGNESIUM OXIDE 400 MG TABLET (FP) PO ONE (18:07)
[2024-12-10] MEDS: hydrOXYzine PAMOATE 25 MG CAPSULE (FP) PO PRN (19:39)
[2024-12-10] MEDS: MAGNESIUM OXIDE 400 MG TABLET (FP) PO SCH (21:29)
[2024-12-10] MEDS ORDERED: MAGNESIUM OXIDE 400 MG TABLET (FP) PO SCH (22:00)
[2024-12-11] MEDS: ACETAMINOPHEN 325 MG TABLET (FP) PO PRN (01:12)
[2024-12-11 08:51] LABS: HEMATOCRIT 25.8 % (32.4-45.2); HEMOGLOBIN 9.1 GM/dL (10.7-15.3); MCHC 35.1 g/dl (32.0-36.0); MEAN CELL VOLUME 91.2 fl (80-96); MEAN PLT VOLUME 7.8 fl (7.5-11.1); PLATELET COUNT 291 10^3/uL (134-434); RBC 2.83 M/mm3 (3.60-5.2); RDW 14.8 % (11.6-15.6); WHITE BLOOD COUNT 5.6 K/mm3 (4.0-10.0)
[2024-12-11 09:03] LABS: POTASSIUM 3.7 mmol/L (3.5-5.1)
[2024-12-11 09:12] LABS: ALBUMIN 2.6 g/dl (3.4-5.0)
[2024-12-11 09:14] LABS: CALCIUM 8.8 mg/dL (8.5-10.1)
[2024-12-11 09:15] LABS: BLOOD UREA NITROGEN 7.2 mg/dL (7-18); CREATININE 0.8 mg/dL (0.55-1.3); MAGNESIUM 1.4 mg/dL (1.8-2.4)
[2024-12-11 09:16] LABS: PHOSPHOROUS 3.8 mg/dL (2.5-4.9)
[2024-12-11 09:19] LABS: TOT PROT 7.1 g/dl (6.4-8.2)
[2024-12-11 09:21] LABS: BILIRUBIN,TOTAL 0.2 mg/dL (0.2-1)
[2024-12-11] MEDS ORDERED: MAGNESIUM OXIDE 400 MG TABLET (FP) PO SCH (10:45)
[2024-12-11] MEDS ORDERED: traMADol HCL 50 MG TABLET PO PRN (10:49)
[2024-12-11] MEDS: MAGNESIUM SULFATE IN WATER 2 GM/50 ML IVPB IVPB ONE (11:06)
[2024-12-12] MEDS: traMADol HCL 50 MG TABLET PO PRN (00:20)
[2024-12-12 09:38] LABS: HEMATOCRIT 27.3 % (32.4-45.2); HEMOGLOBIN 9.3 GM/dL (10.7-15.3); MCH 31.7 pg (25.7-33.7); MCHC 34.2 g/dl (32.0-36.0); MEAN CELL VOLUME 92.7 fl (80-96); MEAN PLT VOLUME 8.4 fl (7.5-11.1); PLATELET COUNT 299 10^3/uL (134-434); RBC 2.95 M/mm3 (3.60-5.2); RDW 14.6 % (11.6-15.6); WHITE BLOOD COUNT 6.1 K/mm3 (4.0-10.0)
[2024-12-12 09:58] LABS: POTASSIUM 4.3 mmol/L (3.5-5.1)
[2024-12-12 10:45] LABS: CALCIUM 8.9 mg/dL (8.5-10.1)
[2024-12-12 10:46] LABS: ALBUMIN 2.7 g/dl (3.4-5.0); BLOOD UREA NITROGEN 6.7 mg/dL (7-18); MAGNESIUM 1.7 mg/dL (1.8-2.4)
[2024-12-12 10:48] LABS: CREATININE 0.8 mg/dL (0.55-1.3)
[2024-12-12 10:49] LABS: PHOSPHOROUS 3.8 mg/dL (2.5-4.9)
[2024-12-12 10:50] LABS: BILIRUBIN,TOTAL 0.3 mg/dL (0.2-1); TOT PROT 7.3 g/dl (6.4-8.2)
[2024-12-12] MEDS: ENOXAPARIN NA (PORCINE) 40 MG/0.4 ML DISP.SYRIN SQ SCH (14:49)
[2024-12-13 06:46] VITALS: RESP 18; TEMP 98.6
[2024-12-13 09:07] LABS: HEMATOCRIT 28.8 % (32.4-45.2); HEMOGLOBIN 9.5 GM/dL (10.7-15.3); MCH 30.6 pg (25.7-33.7); MCHC 33.1 g/dl (32.0-36.0); MEAN CELL VOLUME 92.5 fl (80-96); PLATELET COUNT 316 10^3/uL (134-434); RBC 3.11 M/mm3 (3.60-5.2); RDW 14.5 % (11.6-15.6); WHITE BLOOD COUNT 5.4 K/mm3 (4.0-10.0)
[2024-12-13 10:20] LABS: POTASSIUM 3.9 mmol/L (3.5-5.1)
[2024-12-13 10:24] LABS: CALCIUM 9.1 mg/dL (8.5-10.1)
[2024-12-13 10:25] LABS: ALBUMIN 2.7 g/dl (3.4-5.0); BLOOD UREA NITROGEN 7.3 mg/dL (7-18); MAGNESIUM 1.6 mg/dL (1.8-2.4)
[2024-12-13 10:28] LABS: CREATININE 0.8 mg/dL (0.55-1.3)
[2024-12-13 10:29] LABS: BILIRUBIN,TOTAL 0.3 mg/dL (0.2-1); TOT PROT 7.4 g/dl (6.4-8.2)
[2024-12-13 14:13] VITALS: BP 107/91; PULSE 96
[2024-12-13] MEDS: oxyCODONE HCL 5 MG TABLET PO ONE (15:23)
== END 2024-12-13 17:16 | disposition home health service (06) ==
LOC: JER 15:26 → INTOOBSV 18:17 → JERBED 18:17 → J7W 12-09 08:37
PROVIDERS: ADMIT Internal Medicine
PROC: 3E023GC Introduction of Other Therapeutic Substance into Muscle, Percutaneous Approach (ICD-10-PCS; principal; 2024-12-08)
PROC: 3E033NZ Introduction of Analgesics, Hypnotics, Sedatives into Peripheral Vein, Percutaneous Approach (ICD-10-PCS; 2024-12-08)
PROC: 3E033GC Introduction of Other Therapeutic Substance into Peripheral Vein, Percutaneous Approach (ICD-10-PCS; 2024-12-08)
PROC: 3E0337Z Introduction of Electrolytic and Water Balance Substance into Peripheral Vein, Percutaneous Approach (ICD-10-PCS; 2024-12-08)
DX: K94.01 Colostomy hemorrhage (principal); J44.9 Chronic obstructive pulmonary disease, unspecified; Z87.891 Personal history of nicotine dependence; M72.6 Necrotizing fasciitis; F41.9 Anxiety disorder, unspecified; E83.42 Hypomagnesemia; D64.89 Other specified anemias; K65.1 Peritoneal abscess; Z99.81 Dependence on supplemental oxygen; K56.609 Unspecified intestinal obstruction, unspecified as to partial versus complete obstruction; E87.6 Hypokalemia; G89.29 Other chronic pain; F43.10 Post-traumatic stress disorder, unspecified; M51.26 Other intervertebral disc displacement, lumbar region; I31.9 Disease of pericardium, unspecified
CPT/HCPCS: 36415; 71045-TC-FY; 71275-TC; 74174-TC; 80048; 80053; 83605; 83735; 84100; 84484; 84703; 85025; 85027; 85379; 85610; 85651; 85730; 86140; 86803; 86850; 86900; 86901; 87389; 93005; 93010; 94761; 96365; 96366; 96372; 96375; 96376; 99285-25; G0378; Q9967

== ENCOUNTER 2025-01-04 09:56 | Observation (INO) | payer OTHER ==
[2025-01-04] MEDS ORDERED: HYDROmorphone HCL CARPU-JECT 2 MG/1 ML DISP.SYRIN ONE ×2 (11:41→16:27)
[2025-01-04] MEDS: HYDROmorphone HCl 2 MG/ML VIAL IVPUSH STA (11:51)
[2025-01-04 12:17] LABS: INR 1.17 (0.83-1.09); PROTHROMBIN TIME (PATIENT) 12.9 SEC (9.7-13.0)
[2025-01-04 12:19] LABS: ACTIVATED PTT 30.6 SECONDS (25.2-36.5)
[2025-01-04 12:31] LABS: POTASSIUM 3.4 mmol/L (3.5-5.1)
[2025-01-04 12:34] LABS: BLOOD UREA NITROGEN 13.3 mg/dL (7-18); CALCIUM 9.4 mg/dL (8.5-10.1)
[2025-01-04 12:35] LABS: ALBUMIN 3.6 g/dl (3.4-5.0)
[2025-01-04 12:38] LABS: CREATININE 0.8 mg/dL (0.55-1.3)
[2025-01-04 12:39] LABS: BILIRUBIN,TOTAL 0.4 mg/dL (0.2-1); TOT PROT 8.1 g/dl (6.4-8.2)
[2025-01-04 13:12] LABS: ABSOLUTE IMMATURE GRANULOCYTES 0.01 x10^3/uL (0.0-0.031); BASOPHILS # 0.04 x10^3/uL (0.01-0.08); EOSINOPHIL % 1.7 % (0.7-5.8); HEMATOCRIT 40.7 % (34.1-44.9); MCHC 31.9 g/dl (32.2-35.5); MEAN CELL VOLUME 96.7 fl (79.4-94.8); MONOCYTE # 0.39 x10^3/uL (0.24-0.86); MONOCYTE % 6.6 % (4.7-12.5); RDW 13.4 % (12.3-16.6)
[2025-01-04 15:13] LABS: HIV INTERPRETATION NEGATIVE (NEGATIVE)
[2025-01-04 15:14] LABS: HCV DIAGNOSTIC IN-HOUSE W/RFLX NON-REACTIVE (NONREACTIVE)
[2025-01-04 15:54] LABS: MEAN PLT VOLUME 11.2 fl (9.4-12.3); PLATELET COUNT 234 x10^3/uL (182-369)
[2025-01-04] MEDS: HYDROmorphone HCl 2 MG/ML VIAL IVPB STA (16:44)
[2025-01-04] MEDS ORDERED: POTASSIUM CHLORIDE TABS 20 MEQ TABLET.ER (FP) PO ONE (18:43)
[2025-01-04] MEDS ORDERED: POTASSIUM CHLORIDE ORAL LIQUID 20 MEQ/15 ML ONE (18:45)
[2025-01-04] MEDS: POTASSIUM CHLORIDE ORAL LIQUID 20 MEQ/15 ML PO ONE (18:51)
[2025-01-04] MEDS ORDERED: hydrOXYzine PAMOATE 25 MG CAPSULE (FP) PO PRN (18:53)
[2025-01-04] MEDS ORDERED: ALBUTEROL SO4 HFA INHALER IH PRN (18:55)
[2025-01-04 19:02] LABS: ABSOLUTE IMMATURE GRANULOCYTES 0.01 x10^3/uL (0.0-0.031); BASOPHILS # 0.04 x10^3/uL (0.01-0.08); EOSINOPHIL % 1.9 % (0.7-5.8); EOSINOPHILS # 0.11 x10^3/uL (0.04-0.36); HEMATOCRIT 34.2 % (34.1-44.9); HEMOGLOBIN 11.2 g/dL (11.2-15.7); MCHC 32.7 g/dl (32.2-35.5); MEAN CELL VOLUME 95.8 fl (79.4-94.8); MEAN PLT VOLUME 9.9 fl (9.4-12.3); MONOCYTE % 8.8 % (4.7-12.5); PLATELET COUNT 213 x10^3/uL (182-369); RDW 13.4 % (12.3-16.6)
[2025-01-04 20:59] VITALS: BMI 26.1
[2025-01-04] MEDS: GABAPENTIN 400 MG CAPSULE PO SCH (21:13)
[2025-01-04] MEDS: PANTOPRAZOLE SODIUM 40 MG VIAL IVPUSH ONE (21:40)
[2025-01-04] MEDS: PANTOPRAZOLE 40 MG TABLET PO ONE (21:41)
[2025-01-04] MEDS: oxyCODONE HCL 5 MG TABLET PO PRN (21:41)
[2025-01-04] MEDS ORDERED: PANTOPRAZOLE 40 MG TABLET PO SCH (22:00)
[2025-01-04] MEDS: oxyCODONE HCL 5 MG TABLET PO ONE (23:27)
[2025-01-05] MEDS: ACETAMINOPHEN 500 MG TABLET (FP) PO PRN (05:05)
[2025-01-05 08:32] LABS: HEMATOCRIT 36.1 % (34.1-44.9); HEMOGLOBIN 11.4 g/dL (11.2-15.7); MCHC 31.6 g/dl (32.2-35.5); MEAN PLT VOLUME 10.2 fl (9.4-12.3); PLATELET COUNT 209 x10^3/uL (182-369); RDW 13.4 % (12.3-16.6)
[2025-01-05 08:58] LABS: POTASSIUM 3.7 mmol/L (3.5-5.1)
[2025-01-05 09:21] LABS: ALBUMIN 3.1 g/dl (3.4-5.0); CALCIUM 9.3 mg/dL (8.5-10.1)
[2025-01-05 09:22] LABS: BLOOD UREA NITROGEN 9.8 mg/dL (7-18); MAGNESIUM 1.8 mg/dL (1.8-2.4)
[2025-01-05 09:25] LABS: CREATININE 0.8 mg/dL (0.55-1.3); PHOSPHOROUS 4.8 mg/dL (2.5-4.9)
[2025-01-05 09:26] LABS: BILIRUBIN,TOTAL 0.5 mg/dL (0.2-1); TOT PROT 7.3 g/dl (6.4-8.2)
[2025-01-05] MEDS: MONTELUKAST NA 10 MG TABLET PO SCH (10:02)
[2025-01-05] MEDS: busPIRone HCL 5 MG TABLET PO SCH (10:02)
[2025-01-05] MEDS: SERTRALINE HCL 25 MG TABLET (FP) PO SCH (10:02)
[2025-01-05] MEDS: MAGNESIUM OXIDE 400 MG TABLET (FP) PO SCH (10:04)
[2025-01-05] MEDS: PANTOPRAZOLE SODIUM 40 MG VIAL IVPUSH SCH (10:04)
[2025-01-05] MEDS: FLUTICASONE/UMECLIDIN/VILANTER(200-62.5-25 TRELEGY ELLIPTA) INAHLER IH SCH (10:37)
[2025-01-05] MEDS: oxyCODONE HCL 5 MG TABLET PO ONE (10:55)
[2025-01-05] MEDS: THEOPHYLLINE ANHYDROUS 200 MG CAP.ER.24H PO SCH (10:55)
[2025-01-05] MEDS: BISACODYL 5 MG TABLET.DR (FP) PO ONE (16:55)
[2025-01-05] MEDS: PEG 3350/NA SULF BICARB CL/KCL 4000 ML SOLN.RECON PO ONE (17:55)
[2025-01-05] MEDS: oxyCODONE HCL 5 MG TABLET PO SCH (17:59)
[2025-01-05] MEDS: ACETAMINOPHEN 325 MG TABLET (FP) PO SCH (18:03)
[2025-01-06 08:53] LABS: ABSOLUTE IMMATURE GRANULOCYTES 0.01 x10^3/uL (0.0-0.031); BASOPHILS # 0.03 x10^3/uL (0.01-0.08); EOSINOPHIL % 4.1 % (0.7-5.8); EOSINOPHILS # 0.18 x10^3/uL (0.04-0.36); HEMATOCRIT 35.9 % (34.1-44.9); HEMOGLOBIN 11.8 g/dL (11.2-15.7); MCHC 32.9 g/dl (32.2-35.5); MEAN PLT VOLUME 10.4 fl (9.4-12.3); MONOCYTE # 0.43 x10^3/uL (0.24-0.86); MONOCYTE % 9.8 % (4.7-12.5); PLATELET COUNT 215 x10^3/uL (182-369); RDW 13.2 % (12.3-16.6)
[2025-01-06 08:59] LABS: INR 1.24 (0.83-1.09); PROTHROMBIN TIME (PATIENT) 13.6 SEC (9.7-13.0)
[2025-01-06 09:18] LABS: POTASSIUM 3.6 mmol/L (3.5-5.1)
[2025-01-06 09:37] LABS: CALCIUM 9.7 mg/dL (8.5-10.1)
[2025-01-06 09:38] LABS: ALBUMIN 3.5 g/dl (3.4-5.0); BLOOD UREA NITROGEN 7.4 mg/dL (7-18); MAGNESIUM 1.9 mg/dL (1.8-2.4)
[2025-01-06 09:41] LABS: CREATININE 0.7 mg/dL (0.55-1.3)
[2025-01-06 09:42] LABS: BILIRUBIN,TOTAL 0.8 mg/dL (0.2-1); PHOSPHOROUS 4.8 mg/dL (2.5-4.9)
[2025-01-06 09:43] LABS: TOT PROT 7.9 g/dl (6.4-8.2)
[2025-01-07 08:38] LABS: HEMATOCRIT 35.4 % (34.1-44.9); HEMOGLOBIN 11.4 g/dL (11.2-15.7); MCHC 32.2 g/dl (32.2-35.5); MEAN CELL VOLUME 95.4 fl (79.4-94.8); MEAN PLT VOLUME 10.1 fl (9.4-12.3); PLATELET COUNT 203 x10^3/uL (182-369); RDW 13.3 % (12.3-16.6)
[2025-01-07 09:00] LABS: POTASSIUM 3.7 mmol/L (3.5-5.1)
[2025-01-07 09:08] LABS: ALBUMIN 3.2 g/dl (3.4-5.0); BLOOD UREA NITROGEN 9.5 mg/dL (7-18); CALCIUM 9.1 mg/dL (8.5-10.1)
[2025-01-07 09:09] LABS: MAGNESIUM 1.9 mg/dL (1.8-2.4)
[2025-01-07 09:10] LABS: BILIRUBIN,TOTAL 0.3 mg/dL (0.2-1); TOT PROT 7.3 g/dl (6.4-8.2)
[2025-01-07 09:11] LABS: CREATININE 0.8 mg/dL (0.55-1.3)
[2025-01-07 09:12] LABS: PHOSPHOROUS 4.6 mg/dL (2.5-4.9)
[2025-01-07] MEDS: PANTOPRAZOLE 40 MG TABLET PO SCH (09:17)
[2025-01-07] MEDS: ENOXAPARIN NA (PORCINE) 40 MG/0.4 ML DISP.SYRIN SQ SCH (09:17)
[2025-01-07 12:45] VITALS: BP 108/68; PULSE 71; RESP 17; TEMP 98.6
== END 2025-01-07 14:14 | disposition home or self-care (01) ==
LOC: JER 09:56 → UNDOADMOB 17:57 → JERBED 17:57 → INTOOBSV 17:57 → JERBED 18:21 → J6S 20:16
PROVIDERS: ADMIT Internal Medicine; ATTEND Internal Medicine
PROC: 0DJD8ZZ Inspection of Lower Intestinal Tract, Via Natural or Artificial Opening Endoscopic (ICD-10-PCS; principal; 2025-01-04)
PROC: 3E033NZ Introduction of Analgesics, Hypnotics, Sedatives into Peripheral Vein, Percutaneous Approach (ICD-10-PCS; 2025-01-04)
PROC: 3E033GC Introduction of Other Therapeutic Substance into Peripheral Vein, Percutaneous Approach (ICD-10-PCS; 2025-01-04)
DX: K94.01 Colostomy hemorrhage (principal); R10.9 Unspecified abdominal pain; J44.9 Chronic obstructive pulmonary disease, unspecified; M72.6 Necrotizing fasciitis; S71.102D Unspecified open wound, left thigh, subsequent encounter; K76.89 Other specified diseases of liver; G89.29 Other chronic pain; F41.9 Anxiety disorder, unspecified; F43.10 Post-traumatic stress disorder, unspecified; K92.9 Disease of digestive system, unspecified; Z87.891 Personal history of nicotine dependence; Z88.8 Allergy status to other drugs, medicaments and biological substances; X58.XXXD Exposure to other specified factors, subsequent encounter
CPT/HCPCS: 36415; 71045-TC-FY; 74177-TC; 80053; 83605; 83735; 84100; 85025; 85027; 85610; 85730; 86803; 86850; 86900; 86901; 87389; 93005; 93010; 96374; 96375; 96376; 99285-25; G0378; Q9967

== ENCOUNTER 2025-03-13 15:36 | Inpatient (IN) | payer OTHER ==
[2025-03-13 10:48] VITALS: BMI 26.6
[2025-03-14] MEDS ORDERED: cefOXitin SODIUM 2 GM VIAL (RESTRICTED TO ID) IVPB ONE ×3 (06:08→16:13)
[2025-03-14] MEDS ORDERED: GABAPENTIN 300 MG CAPSULE ONE (06:32)
[2025-03-14] MEDS: SCOPOLAMINE HYDROBROMIDE 1 PATCH PATCH.TD72 TD ONE (06:35)
[2025-03-14] MEDS: GABAPENTIN 300 MG CAPSULE PO ONE (06:35)
[2025-03-14] MEDS ORDERED: ONDANSETRON 4 MG/2 ML VIAL IVPUSH PRN ×3 (06:54→16:13)
[2025-03-14] MEDS ORDERED: LACTATED RINGERS SOLUTION 1,000 ML IV SCH (07:00)
[2025-03-14] MEDS ORDERED: HEPARIN NA (PORCINE) 5,000 UNITS/ML 1ML VIAL ONE (07:08)
[2025-03-14] MEDS ORDERED: INDOCYANINE GREEN 25 MG/10 ML VIAL IVPUSH ONE ×2 (07:08→07:54)
[2025-03-14] MEDS ORDERED: MIDAZOLAM HCL 2 MG/2 ML SINGLE DOSE VIAL ONE (08:02)
[2025-03-14] MEDS ORDERED: LIDOCAINE HCL/PF 2% SDV 5ML VIAL ONE (08:13)
[2025-03-14] MEDS ORDERED: PROPOFOL 20 ML ONE ×3 (08:13→10:57)
[2025-03-14] MEDS ORDERED: ROCURONIUM BROMIDE 50 MG/5 ML SYRINGE ONE ×3 (08:15→13:10)
[2025-03-14] MEDS ORDERED: MAGNESIUM SULF 50% (8.12 MEQ/2 ML-1 GM VIAL) ONE ×2 (09:07)
[2025-03-14] MEDS: cefOXitin SODIUM 2 GM VIAL (RESTRICTED TO ID) IVPB ONE ×2 (09:10)
[2025-03-14] MEDS ORDERED: DEXAMETHASONE SOD PHOSPHATE 4 MG/1 ML VIAL ONE ×2 (09:18)
[2025-03-14] MEDS ORDERED: METOCLOPRAMIDE HCL INJECTION 10 MG/2 ML VIAL ONE (09:19)
[2025-03-14] MEDS ORDERED: GLYCOPYRROLATE 0.2 MG/1 ML VIAL ONE (09:19)
[2025-03-14] MEDS ORDERED: HYDROmorphone HCl 2 MG/ML VIAL ONE (09:24)
[2025-03-14] MEDS ORDERED: KETAMINE HCL 200 MG/20 ML VIAL ONE (09:25)
[2025-03-14] MEDS: BUPIVACAINE HCL/PF 0.25% (2.5MG/ML) 10 ML VIAL IJ ONE ×2 (09:28)
[2025-03-14] MEDS ORDERED: ePHEDrine SULFATE 50 MG/1 ML AMPULE ONE (09:38)
[2025-03-14] MEDS ORDERED: CEFOXITIN SODIUM 2 GM IVPB ONE (12:44)
[2025-03-14] MEDS ORDERED: TRANEXAMIC ACID 1000 MG/10 ML VIAL ONE (14:01)
[2025-03-14] MEDS ORDERED: ONDANSETRON 4 MG/2 ML VIAL ONE (14:19)
[2025-03-14] MEDS ORDERED: ACETAMINOPHEN INJECTION 100 ML ONE (14:33)
[2025-03-14] MEDS ORDERED: SUGAMMADEX SODIUM 200 MG/2 ML VIAL ONE (15:06)
[2025-03-14] MEDS ORDERED: ALBUTEROL SO4 2.5/IPRATROPIUM 0.5 INH SOL 3 ML VIAL.NEB. NEB PRN (15:42)
[2025-03-14] MEDS ORDERED: HYDROmorphone *PCA* 10MG/50ML DISP.SYRIN PCA SCH (15:45)
[2025-03-14 16:35] LABS: HEMATOCRIT 37.6 % (34.1-44.9); HEMOGLOBIN 12.6 g/dL (11.2-15.7); MCHC 33.5 g/dl (32.2-35.5); MEAN CELL VOLUME 91.5 fl (79.4-94.8); MEAN PLT VOLUME 9.8 fl (9.4-12.3); PLATELET COUNT 142 x10^3/uL (182-369); RDW 12.6 % (12.3-16.6)
[2025-03-14 17:01] LABS: CALCIUM 8.3 mg/dL (8.5-10.1); POTASSIUM 3.4 mmol/L (3.5-5.1)
[2025-03-14 17:02] LABS: BLOOD UREA NITROGEN 10.8 mg/dL (7-18); MAGNESIUM 2.2 mg/dL (1.8-2.4)
[2025-03-14 17:05] LABS: CREATININE 0.9 mg/dL (0.55-1.3); PHOSPHOROUS 5.6 mg/dL (2.5-4.9)
[2025-03-14] MEDS: LACTATED RINGERS SOLUTION 1,000 ML/1,000 ML INFUS.BAG IV SCH ×2 (17:23→17:29)
[2025-03-14] MEDS: HYDROmorphone *PCA* 10MG/50ML DISP.SYRIN PCA SCH (17:23)
[2025-03-14] MEDS ORDERED: ALBUTEROL SO4 2.5/IPRATROPIUM 0.5 INH SOL 3 ML VIAL.NEB. NEB ONE (17:35)
[2025-03-14] MEDS: ALBUTEROL SO4 2.5/IPRATROPIUM 0.5 INH SOL 3 ML VIAL.NEB. NEB PRN (17:50)
[2025-03-14] MEDS ORDERED: ACETAMINOPHEN 1000 MG/100 ML BAG IVPB SCH (21:00)
[2025-03-14] MEDS: FAMOTIDINE 20 MG/50 ML IVPB 20 MG/50 ML MG IVPB SCH (21:30)
[2025-03-14] MEDS: CEFOXITIN SODIUM 1 GM in DEXTROSE 5%-WATER - 100 ML IVPB SCH (21:32)
[2025-03-14] MEDS: ACETAMINOPHEN 1000 MG/100 ML BAG IVPB SCH (21:34)
[2025-03-14] MEDS: KCL 10 MEQ IVPB 10 MEQ/100 ML INFUS.BAG IVPB SCH (21:42)
[2025-03-14] MEDS: cefOXitin SODIUM 2 GM/50 PREMIX IN DEXTROSE (RESTRICTED TO ID) IVPB ONE (21:45)
[2025-03-14] MEDS ORDERED: FAMOTIDINE 20 MG/50 ML IVPB 20 MG/50 ML MG IVPB SCH (22:00)
[2025-03-14] MEDS: TRANEXAMIC ACID 1000 MG/10 ML VIAL IVPUSH SCH (23:23)
[2025-03-15 07:55] LABS: HEMOGLOBIN 11.4 g/dL (11.2-15.7); RDW 13.2 % (12.3-16.6)
[2025-03-15 07:56] LABS: HEMATOCRIT 34.3 % (34.1-44.9); MCHC 33.2 g/dl (32.2-35.5); MEAN CELL VOLUME 92.7 fl (79.4-94.8); MEAN PLT VOLUME 10.7 fl (9.4-12.3); PLATELET COUNT 116 x10^3/uL (182-369)
[2025-03-15 08:09] LABS: POTASSIUM 3.9 mmol/L (3.5-5.1)
[2025-03-15 08:14] LABS: CALCIUM 8.2 mg/dL (8.5-10.1)
[2025-03-15 08:15] LABS: BLOOD UREA NITROGEN 11.9 mg/dL (7-18); MAGNESIUM 2.1 mg/dL (1.8-2.4)
[2025-03-15 08:18] LABS: PHOSPHOROUS 4.6 mg/dL (2.5-4.9)
[2025-03-15] MEDS: ENOXAPARIN NA (PORCINE) 40 MG/0.4 ML DISP.SYRIN SQ SCH (09:46)
[2025-03-15] MEDS: LIDOCAINE 5% TOPICAL PATCH TP SCH (09:46)
[2025-03-15] MEDS ORDERED: ENOXAPARIN NA (PORCINE) 40 MG/0.4 ML DISP.SYRIN SQ SCH (10:00)
[2025-03-15 11:27] LABS: ALBUMIN 3.1 g/dl (3.4-5.0)
[2025-03-15] MEDS: LORazepam 2 MG/ML SDV VIAL IVPUSH ONE (12:14)
[2025-03-15] MEDS: HYDROmorphone *PCA* 10MG/50ML DISP.SYRIN PCA SCH (16:17)
[2025-03-15] MEDS: KETOROLAC TROMETHAMINE 15 MG/ML VIAL IVPUSH ONE (16:42)
[2025-03-15] MEDS: LIDOCAINE PATCH REMOVAL MC SCH (22:01)
[2025-03-16 07:09] LABS: HEMOGLOBIN 10.3 g/dL (11.2-15.7); MEAN PLT VOLUME 10.9 fl (9.4-12.3); RDW 13.2 % (12.3-16.6)
[2025-03-16 07:11] LABS: HEMATOCRIT 31.1 % (34.1-44.9); MCHC 33.1 g/dl (32.2-35.5); MEAN CELL VOLUME 92.8 fl (79.4-94.8); PLATELET COUNT 118 x10^3/uL (182-369)
[2025-03-16 07:28] LABS: POTASSIUM 3.4 mmol/L (3.5-5.1)
[2025-03-16 07:29] LABS: CALCIUM 8.6 mg/dL (8.5-10.1)
[2025-03-16 07:30] LABS: BLOOD UREA NITROGEN 12.2 mg/dL (7-18); MAGNESIUM 1.9 mg/dL (1.8-2.4)
[2025-03-16 07:33] LABS: CREATININE 0.6 mg/dL (0.55-1.3); PHOSPHOROUS 2.4 mg/dL (2.5-4.9)
[2025-03-16] MEDS: DEXTROSE 50%-WATER 25 GM/50 ML DISP.SYRIN IVPUSH ONE (07:44)
[2025-03-16] MEDS ORDERED: HYDROmorphone *PCA* 10MG/50ML DISP.SYRIN ONE (09:51)
[2025-03-16 10:37] LABS: ALBUMIN 2.8 g/dl (3.4-5.0)
[2025-03-16] MEDS ORDERED: LIDOCAINE HCL 1%, 10 MG/ML (20ML VIAL) ONE (11:35)
[2025-03-16] MEDS: KCL 10 MEQ IVPB 10 MEQ/100 ML INFUS.BAG IVPB SCH (12:00)
[2025-03-16] MEDS: LIDOCAINE HCL 1%, 10 MG/ML (20ML VIAL) SQ ONE (13:10)
[2025-03-16] MEDS: POTASSIUM CHLORIDE ORAL LIQUID 20 MEQ/15 ML PO ONE ×2 (13:26→21:53)
[2025-03-16] MEDS: NAPH,MB-DB/K PH,MBDB POWDER PACKET PO SCH (13:26)
[2025-03-16] MEDS: oxyCODONE HCL 5 MG TABLET PO PRN ×2 (13:26→17:01)
[2025-03-16] MEDS: AMINO ACIDS 4.25%/D5W 1,000 ML IV SCH (13:26)
[2025-03-16] MEDS: GABAPENTIN 400 MG CAPSULE PO SCH (17:07)
[2025-03-16] MEDS: IRON SUCROSE INJECTION 100 MG in SODIUM CHLORIDE 95 ML IVPB ONE (17:13)
[2025-03-16] MEDS: busPIRone HCL 5 MG TABLET PO ONE (21:53)
[2025-03-16] MEDS: SERTRALINE HCL 50 MG TABLET (FP) PO ONE (21:53)
[2025-03-17] MEDS ORDERED: ALBUTEROL SO4 2.5/IPRATROPIUM 0.5 INH SOL 3 ML VIAL.NEB. NEB PRN (00:46)
[2025-03-17 08:13] LABS: MCHC 33.9 g/dl (32.2-35.5); MEAN CELL VOLUME 91.8 fl (79.4-94.8)
[2025-03-17 08:15] LABS: HEMATOCRIT 30.1 % (34.1-44.9); HEMOGLOBIN 10.2 g/dL (11.2-15.7); MEAN PLT VOLUME 10.7 fl (9.4-12.3); PLATELET COUNT 138 x10^3/uL (182-369); RDW 12.6 % (12.3-16.6)
[2025-03-17 08:26] LABS: POTASSIUM 3.3 mmol/L (3.5-5.1)
[2025-03-17 08:33] LABS: CALCIUM 9.2 mg/dL (8.5-10.1); CREATININE 0.4 mg/dL (0.55-1.3); MAGNESIUM 1.6 mg/dL (1.8-2.4); PHOSPHOROUS 1.7 mg/dL (2.5-4.9)
[2025-03-17] MEDS: POTASSIUM CHLORIDE ORAL LIQUID 20 MEQ/15 ML PO ONE ×2 (09:14→21:14)
[2025-03-17] MEDS: FAMOTIDINE 20 MG/50 ML IVPB 20 MG/50 ML MG IVPB SCH (09:15)
[2025-03-17] MEDS: ENOXAPARIN NA (PORCINE) 40 MG/0.4 ML DISP.SYRIN SQ SCH (09:15)
[2025-03-17] MEDS: MAGNESIUM OXIDE 400 MG TABLET (FP) PO ONE (09:15)
[2025-03-17] MEDS: LIDOCAINE 5% TOPICAL PATCH TP SCH (09:16)
[2025-03-17] MEDS: SERTRALINE HCL 25 MG TABLET (FP) PO SCH (10:39)
[2025-03-17] MEDS: busPIRone HCL 5 MG TABLET PO SCH (10:39)
[2025-03-17] MEDS: AMINO ACIDS 4.25%/D5W 1,000 ML IV SCH (10:40)
[2025-03-17] MEDS: FLUTICASONE/UMECLIDIN/VILANTER(200-62.5-25 TRELEGY ELLIPTA) INAHLER IH SCH (10:44)
[2025-03-17] MEDS: POTASSIUM PHOSPHATE 15 MM in SODIUM CHLORIDE 250 ML IVPB ONE (11:05)
[2025-03-17] MEDS: NAPH,MB-DB/K PH,MBDB POWDER PACKET PO SCH (11:18)
[2025-03-17] MEDS: ALBUTEROL SO4 2.5/IPRATROPIUM 0.5 INH SOL 3 ML VIAL.NEB. NEB ONE (11:34)
[2025-03-17] MEDS ORDERED: ACETAMINOPHEN 500 MG TABLET (FP) PO PRN (15:11)
[2025-03-17] MEDS: MULTIVITAMINS (DAILY MVI) TABLET (FP) PO SCH (17:43)
[2025-03-17] MEDS: IRON SUCROSE INJECTION 100 MG in SODIUM CHLORIDE 95 ML IVPB ONE (20:41)
[2025-03-17] MEDS: MONTELUKAST NA 10 MG TABLET PO SCH (21:14)
[2025-03-17] MEDS: MAGNESIUM OXIDE 400 MG TABLET (FP) PO SCH (21:15)
[2025-03-17] MEDS: LIDOCAINE PATCH REMOVAL MC SCH (21:15)
[2025-03-17] MEDS: SODIUM CHLORIDE NASAL SPRAY 44 ML BOTTLE NS SCH (21:16)
[2025-03-18 07:55] LABS: HEMOGLOBIN 9.5 g/dL (11.2-15.7)
[2025-03-18 07:57] LABS: HEMATOCRIT 28.8 % (34.1-44.9); MEAN CELL VOLUME 92.3 fl (79.4-94.8); MEAN PLT VOLUME 10.2 fl (9.4-12.3); PLATELET COUNT 139 x10^3/uL (182-369); RDW 13.1 % (12.3-16.6)
[2025-03-18 08:16] LABS: POTASSIUM 3.6 mmol/L (3.5-5.1)
[2025-03-18 08:18] LABS: BLOOD UREA NITROGEN 7.2 mg/dL (7-18); MAGNESIUM 1.7 mg/dL (1.8-2.4)
[2025-03-18 08:21] LABS: CREATININE 0.5 mg/dL (0.55-1.3); PHOSPHOROUS 3.1 mg/dL (2.5-4.9)
[2025-03-18] MEDS ORDERED: ALBUTEROL SO4 HFA INHALER IH PRN (08:44)
[2025-03-18] MEDS: MAGNESIUM 2GM/50ML STERILE WATER IVPB IVPB ONE (10:17)
[2025-03-18] MEDS: POTASSIUM CHLORIDE ORAL LIQUID 20 MEQ/15 ML PO ONE (10:18)
[2025-03-18] MEDS: POTASSIUM CHLORIDE TABS 20 MEQ TABLET.ER (FP) PO ONE (11:29)
[2025-03-18] MEDS: MAGNESIUM OXIDE 400 MG TABLET (FP) PO ONE (11:30)
[2025-03-18] MEDS: ACETAMINOPHEN 325 MG TABLET (FP) PO SCH (13:59)
[2025-03-18] MEDS: diphenhydrAMINE HCL 25 MG CAPSULE (FP) PO ONE (13:59)
[2025-03-18] MEDS: diphenhydrAMINE HCL 25 MG CAPSULE (FP) PO PRN (19:10)
[2025-03-18] MEDS: FAMOTIDINE 10 MG TABLET PO SCH (21:08)
[2025-03-18] MEDS: MAGNESIUM OXIDE 400 MG TABLET (FP) PO SCH (21:08)
[2025-03-18] MEDS: IRON SUCROSE INJECTION 200 MG in SODIUM CHLORIDE 100 ML IVPB ONE (21:09)
[2025-03-19 08:03] LABS: HEMATOCRIT 34.8 % (34.1-44.9); HEMOGLOBIN 11.2 g/dL (11.2-15.7); MCHC 32.2 g/dl (32.2-35.5); MEAN CELL VOLUME 93.8 fl (79.4-94.8); MEAN PLT VOLUME 10.8 fl (9.4-12.3); PLATELET COUNT 164 x10^3/uL (182-369); RDW 13.1 % (12.3-16.6)
[2025-03-19 08:19] LABS: CALCIUM 9.6 mg/dL (8.5-10.1)
[2025-03-19 08:20] LABS: BLOOD UREA NITROGEN 7.8 mg/dL (7-18)
[2025-03-19 08:23] LABS: CREATININE 0.6 mg/dL (0.55-1.3)
[2025-03-19 08:24] LABS: PHOSPHOROUS 4.6 mg/dL (2.5-4.9)
[2025-03-19] MEDS: ASCORBIC ACID 250 MG TABLET (FP) PO SCH (12:49)
[2025-03-19] MEDS: FERROUS SO4 325 MG TABLET (FP) PO SCH (21:42)
[2025-03-20] MEDS: POLYMYXIN B SULFATE/TMP 10 ML OPHTHALMIC SOLUTION OS SCH (06:01)
[2025-03-20 08:48] LABS: HEMATOCRIT 31.2 % (34.1-44.9); HEMOGLOBIN 10.1 g/dL (11.2-15.7); MCHC 32.4 g/dl (32.2-35.5); MEAN CELL VOLUME 95.4 fl (79.4-94.8); MEAN PLT VOLUME 10.5 fl (9.4-12.3); PLATELET COUNT 161 x10^3/uL (182-369); RDW 13.2 % (12.3-16.6)
[2025-03-20 09:13] LABS: ALBUMIN 3.1 g/dl (3.4-5.0); CALCIUM 9.2 mg/dL (8.5-10.1)
[2025-03-20 09:14] LABS: BLOOD UREA NITROGEN 6.4 mg/dL (7-18)
[2025-03-20 09:17] LABS: CREATININE 0.5 mg/dL (0.55-1.3); PHOSPHOROUS 5.2 mg/dL (2.5-4.9)
[2025-03-20] MEDS: ENOXAPARIN NA (PORCINE) 40 MG/0.4 ML DISP.SYRIN SQ SCH (09:20)
[2025-03-21] MEDS: ACETAMINOPHEN 1000 MG/100 ML BAG IVPB ONE (00:55)
[2025-03-21 08:20] LABS: HEMATOCRIT 30.9 % (34.1-44.9); HEMOGLOBIN 10.2 g/dL (11.2-15.7); MEAN CELL VOLUME 93.6 fl (79.4-94.8); MEAN PLT VOLUME 10.8 fl (9.4-12.3); PLATELET COUNT 185 x10^3/uL (182-369); RDW 13.2 % (12.3-16.6)
[2025-03-21 08:48] LABS: POTASSIUM 4.3 mmol/L (3.5-5.1)
[2025-03-21 08:49] LABS: CALCIUM 9.5 mg/dL (8.5-10.1)
[2025-03-21 08:50] LABS: BLOOD UREA NITROGEN 6.5 mg/dL (7-18); MAGNESIUM 2.1 mg/dL (1.8-2.4)
[2025-03-21 08:53] LABS: CREATININE 0.6 mg/dL (0.55-1.3); PHOSPHOROUS 4.5 mg/dL (2.5-4.9)
[2025-03-21] MEDS: ACETAMINOPHEN 1000 MG/100 ML BAG IVPB SCH (17:12)
[2025-03-21] MEDS: AMINO ACIDS 4.25%/D5W 1,000 ML IV SCH (17:45)
[2025-03-22] MEDS: ONDANSETRON 4 MG/2 ML VIAL IVPUSH PRN (05:15)
[2025-03-22 08:56] LABS: HEMATOCRIT 34.6 % (34.1-44.9); HEMOGLOBIN 11.1 g/dL (11.2-15.7); MCHC 32.1 g/dl (32.2-35.5); MEAN CELL VOLUME 96.6 fl (79.4-94.8); MEAN PLT VOLUME 11.6 fl (9.4-12.3); PLATELET COUNT 185 x10^3/uL (182-369); RDW 13.4 % (12.3-16.6)
[2025-03-22 09:28] LABS: CALCIUM 9.4 mg/dL (8.5-10.1)
[2025-03-22 09:29] LABS: ALBUMIN 3.4 g/dl (3.4-5.0); BLOOD UREA NITROGEN 9.4 mg/dL (7-18); MAGNESIUM 2.3 mg/dL (1.8-2.4)
[2025-03-22 09:31] LABS: CREATININE 0.6 mg/dL (0.55-1.3)
[2025-03-22 09:33] LABS: BILIRUBIN,TOTAL 0.4 mg/dL (0.2-1)
[2025-03-22] MEDS: Methylnaltrexone Bromide 12 MG/0.6 ML KIT SQ SCH (10:36)
[2025-03-22] MEDS: morphine SULFATE 4 MG/ML VIAL IVPUSH ONE (15:20)
[2025-03-23 10:21] LABS: BLOOD UREA NITROGEN 10.5 mg/dL (7-18); CALCIUM 9.3 mg/dL (8.5-10.1); MAGNESIUM 2.2 mg/dL (1.8-2.4)
[2025-03-23 10:24] LABS: CREATININE 0.6 mg/dL (0.55-1.3); PHOSPHOROUS 3.7 mg/dL (2.5-4.9)
[2025-03-23 10:25] LABS: BILIRUBIN,TOTAL 0.4 mg/dL (0.2-1); TOT PROT 6.8 g/dl (6.4-8.2)
[2025-03-23 11:55] LABS: HEMATOCRIT 31.9 % (34.1-44.9); HEMOGLOBIN 10.5 g/dL (11.2-15.7); MCHC 32.9 g/dl (32.2-35.5); MEAN CELL VOLUME 93.3 fl (79.4-94.8); PLATELET COUNT 238 x10^3/uL (182-369); RDW 13.2 % (12.3-16.6)
[2025-03-24 08:02] LABS: HEMATOCRIT 32.2 % (34.1-44.9); HEMOGLOBIN 10.5 g/dL (11.2-15.7); MCHC 32.6 g/dl (32.2-35.5); MEAN CELL VOLUME 92.8 fl (79.4-94.8); MEAN PLT VOLUME 11.3 fl (9.4-12.3); PLATELET COUNT 239 x10^3/uL (182-369); RDW 13.2 % (12.3-16.6)
[2025-03-24 08:13] LABS: POTASSIUM 3.9 mmol/L (3.5-5.1)
[2025-03-24 08:21] LABS: CALCIUM 9.5 mg/dL (8.5-10.1)
[2025-03-24 08:22] LABS: ALBUMIN 3.2 g/dl (3.4-5.0); BLOOD UREA NITROGEN 9.1 mg/dL (7-18); MAGNESIUM 2.5 mg/dL (1.8-2.4)
[2025-03-24 08:25] LABS: CREATININE 0.7 mg/dL (0.55-1.3); PHOSPHOROUS 4.7 mg/dL (2.5-4.9)
[2025-03-24 08:28] LABS: BILIRUBIN,TOTAL 0.5 mg/dL (0.2-1); TOT PROT 7.3 g/dl (6.4-8.2)
[2025-03-24] MEDS: ACETAMINOPHEN 500 MG TABLET (FP) PO PRN (12:32)
[2025-03-25 12:12] LABS: ABSOLUTE IMMATURE GRANULOCYTES 0.03 x10^3/uL (0.0-0.031); BASOPHILS # 0.05 x10^3/uL (0.01-0.08); EOSINOPHIL % 4.4 % (0.7-5.8); EOSINOPHILS # 0.39 x10^3/uL (0.04-0.36); HEMATOCRIT 35.1 % (34.1-44.9); HEMOGLOBIN 11.5 g/dL (11.2-15.7); MCHC 32.8 g/dl (32.2-35.5); MEAN CELL VOLUME 93.9 fl (79.4-94.8); MEAN PLT VOLUME 10.8 fl (9.4-12.3); MONOCYTE # 0.54 x10^3/uL (0.24-0.86); MONOCYTE % 6.2 % (4.7-12.5); PLATELET COUNT 328 x10^3/uL (182-369); RDW 13.2 % (12.3-16.6)
[2025-03-25 12:36] LABS: POTASSIUM 3.6 mmol/L (3.5-5.1)
[2025-03-25 12:37] LABS: CALCIUM 9.8 mg/dL (8.5-10.1)
[2025-03-25 12:38] LABS: BLOOD UREA NITROGEN 14.3 mg/dL (7-18)
[2025-03-25 12:41] LABS: CREATININE 0.8 mg/dL (0.55-1.3)
[2025-03-25] MEDS ORDERED: IBUPROFEN 400 MG TABLET (FP) PO PRN (13:24)
[2025-03-25] MEDS: ACETAMINOPHEN 325 MG TABLET (FP) PO SCH (13:57)
[2025-03-25] MEDS: PANTOPRAZOLE SODIUM 40 MG VIAL IVPUSH SCH (13:58)
[2025-03-25] MEDS: oxyCODONE HCL 5 MG TABLET PO PRN (20:39)
[2025-03-26 08:32] LABS: HEMATOCRIT 31.4 % (34.1-44.9); HEMOGLOBIN 10.3 g/dL (11.2-15.7); MCHC 32.8 g/dl (32.2-35.5); MEAN CELL VOLUME 92.9 fl (79.4-94.8); MEAN PLT VOLUME 11.4 fl (9.4-12.3); PLATELET COUNT 320 x10^3/uL (182-369); RDW 13.2 % (12.3-16.6)
[2025-03-26 09:00] LABS: POTASSIUM 3.9 mmol/L (3.5-5.1)
[2025-03-26 09:03] LABS: BLOOD UREA NITROGEN 13.7 mg/dL (7-18); CALCIUM 9.4 mg/dL (8.5-10.1); MAGNESIUM 2.3 mg/dL (1.8-2.4)
[2025-03-26 09:06] LABS: CREATININE 0.6 mg/dL (0.55-1.3)
[2025-03-26 09:07] LABS: PHOSPHOROUS 4.6 mg/dL (2.5-4.9)
[2025-03-26 09:08] LABS: BILIRUBIN,TOTAL 0.5 mg/dL (0.2-1)
[2025-03-26 15:48] VITALS: RESP 18
[2025-03-27 08:35] LABS: HEMATOCRIT 31.2 % (34.1-44.9); HEMOGLOBIN 10.2 g/dL (11.2-15.7); MCHC 32.7 g/dl (32.2-35.5); MEAN CELL VOLUME 92.6 fl (79.4-94.8); PLATELET COUNT 344 x10^3/uL (182-369); RDW 13.3 % (12.3-16.6)
[2025-03-27 09:01] LABS: POTASSIUM 3.6 mmol/L (3.5-5.1)
[2025-03-27 09:08] LABS: BLOOD UREA NITROGEN 9.4 mg/dL (7-18); CALCIUM 9.1 mg/dL (8.5-10.1)
[2025-03-27 09:09] LABS: MAGNESIUM 1.9 mg/dL (1.8-2.4)
[2025-03-27] MEDS: PANTOPRAZOLE 40 MG TABLET PO SCH (09:09)
[2025-03-27 09:11] LABS: CREATININE 0.6 mg/dL (0.55-1.3)
[2025-03-27 09:12] LABS: PHOSPHOROUS 4.2 mg/dL (2.5-4.9)
[2025-03-27 09:13] LABS: BILIRUBIN,TOTAL 0.3 mg/dL (0.2-1); TOT PROT 6.9 g/dl (6.4-8.2)
[2025-03-27] MEDS: oxyCODONE HCL 5 MG TABLET PO ONE (11:13)
[2025-03-27] MEDS: CIPROFLOXACIN HCL 0.3% OPHTH 2.5ML BOTTLE OU SCH (13:31)
[2025-03-27] MEDS: ARTIFICIAL TEARS OPHTHALMIC DROPS OU PRN (13:31)
[2025-03-27 15:13] VITALS: BP 103/61; PULSE 62; TEMP 98.8
== END 2025-03-27 15:27 | disposition home health service (06) | DRG 221 ==
LOC: J2C 03-14 06:21 → J4W 03-14 18:50 → J8W 03-17 02:07
PROVIDERS: ADMIT Internal Medicine; ATTEND Nurse Practitioner Acute Care
PROC: 0DNW0ZZ Release Peritoneum, Open Approach (ICD-10-PCS; 2025-03-14)
PROC: 30233N1 Transfusion of Nonautologous Red Blood Cells into Peripheral Vein, Percutaneous Approach (ICD-10-PCS; 2025-03-14)
PROC: 0DBG0ZZ Excision of Left Large Intestine, Open Approach (ICD-10-PCS; principal; 2025-03-14 08:00)
PROC: 0DSN0ZZ Reposition Sigmoid Colon, Open Approach (ICD-10-PCS; 2025-03-14 08:00)
DX: Z43.3 Encounter for attention to colostomy (principal); D69.6 Thrombocytopenia, unspecified; Z99.81 Dependence on supplemental oxygen; E88.09 Other disorders of plasma-protein metabolism, not elsewhere classified; K56.7 Ileus, unspecified; E83.39 Other disorders of phosphorus metabolism; J44.9 Chronic obstructive pulmonary disease, unspecified; K57.32 Diverticulitis of large intestine without perforation or abscess without bleeding; K91.89 Other postprocedural complications and disorders of digestive system; Y83.9 Surgical procedure, unspecified as the cause of abnormal reaction of the patient, or of later complication, without mention of misadventure at the time of the procedure; D64.9 Anemia, unspecified
CPT/HCPCS: 36415; 71045-TC-FY; 74018-TC-FY; 74177-TC; 80048; 80053; 81025; 82040; 82962; 83036; 83540; 83550; 83735; 84100; 84484; 85025; 85027; 86140; 86850; 86900; 86901; 86922; 88304-TC; 88307-TC; 94640; 94760; 97116-GP; 97162-GP; J1756; P9058; Q9967

== ENCOUNTER 2025-04-11 16:28 | Observation (INO) | payer OTHER ==
[2025-04-11 18:06] LABS: ABSOLUTE IMMATURE GRANULOCYTES 0.01 x10^3/uL (0.0-0.031); BASOPHILS # 0.05 x10^3/uL (0.01-0.08); EOSINOPHIL % 8.5 % (0.7-5.8); EOSINOPHILS # 0.51 x10^3/uL (0.04-0.36); MCHC 32.3 g/dl (32.2-35.5); MEAN CELL VOLUME 94.9 fl (79.4-94.8); MEAN PLT VOLUME 10.7 fl (9.4-12.3); MONOCYTE # 0.38 x10^3/uL (0.24-0.86); MONOCYTE % 6.3 % (4.7-12.5); RDW 15.0 % (12.3-16.6)
[2025-04-11 18:14] LABS: INR 1.09 (0.83-1.09); PROTHROMBIN TIME (PATIENT) 12.0 SEC (9.7-13.0)
[2025-04-11 18:31] LABS: CO2 31.0 mmol/L (21-32); GLUCOSE,RANDOM 98.0 mg/dL (74-106)
[2025-04-11 18:34] LABS: SGOT/AST 25.0 U/L (15-37); SGPT/ALT 16.0 U/L (13-61)
[2025-04-11 18:35] LABS: CREATININE 0.7 mg/dL (0.55-1.3)
[2025-04-11 18:36] LABS: TOT PROT 7.9 g/dl (6.4-8.2)
[2025-04-11 18:37] LABS: ALK PHOS 63.0 U/L (45-117)
[2025-04-11] MEDS ORDERED: HYDROmorphone HCL CARPU-JECT 2 MG/1 ML DISP.SYRIN ONE (19:49)
[2025-04-11 20:09] LABS: HIV INTERPRETATION NEGATIVE (NEGATIVE)
[2025-04-11 20:10] LABS: HCV DIAGNOSTIC IN-HOUSE W/RFLX NON-REACTIVE (NONREACTIVE)
[2025-04-12 02:22] VITALS: BMI 25.8
[2025-04-12] MEDS ORDERED: hydrOXYzine PAMOATE 25 MG CAPSULE (FP) PO PRN ×2 (03:03→15:19)
[2025-04-12] MEDS ORDERED: ALBUTEROL SO4 HFA INHALER IH PRN ×2 (03:03→15:19)
[2025-04-12] MEDS: ACETAMINOPHEN 325 MG TABLET (FP) PO PRN (03:52)
[2025-04-12] MEDS: GABAPENTIN 400 MG CAPSULE PO SCH ×2 (05:42→16:22)
[2025-04-12 08:01] LABS: ABSOLUTE IMMATURE GRANULOCYTES 0.00 x10^3/uL (0.0-0.031); BASOPHILS # 0.03 x10^3/uL (0.01-0.08); EOSINOPHIL % 8.6 % (0.7-5.8); EOSINOPHILS # 0.40 x10^3/uL (0.04-0.36); MCHC 32.0 g/dl (32.2-35.5); MEAN CELL VOLUME 95.0 fl (79.4-94.8); MEAN PLT VOLUME 10.2 fl (9.4-12.3); MONOCYTE # 0.31 x10^3/uL (0.24-0.86); MONOCYTE % 6.7 % (4.7-12.5); RDW 14.8 % (12.3-16.6)
[2025-04-12 08:42] LABS: CO2 30 mmol/L (21-32); GLUCOSE,RANDOM 84 mg/dL (74-106)
[2025-04-12 08:44] LABS: CREATININE 0.6 mg/dL (0.55-1.3)
[2025-04-12 08:45] LABS: SGOT/AST 12 U/L (15-37); SGPT/ALT 15 U/L (13-61)
[2025-04-12 08:47] LABS: ALK PHOS 47 U/L (45-117)
[2025-04-12 08:51] LABS: TOT PROT 6.9 g/dl (6.4-8.2)
[2025-04-12] MEDS: ACETAMINOPHEN 325 MG TABLET (FP) PO SCH (08:56)
[2025-04-12] MEDS: SERTRALINE HCL 25 MG TABLET (FP) PO SCH (09:41)
[2025-04-12] MEDS: FLUTICASONE/UMECLIDIN/VILANTER(200-62.5-25 TRELEGY ELLIPTA) INAHLER IH SCH (09:41)
[2025-04-12] MEDS: PANTOPRAZOLE 40 MG TABLET PO SCH ×2 (09:41→21:43)
[2025-04-12] MEDS: FERROUS SO4 325 MG TABLET (FP) PO SCH (09:41)
[2025-04-12] MEDS: LACTATED RINGERS SOLUTION 1,000 ML/1,000 ML INFUS.BAG IV SCH (10:03)
[2025-04-12] MEDS: KCL 10 MEQ IVPB 10 MEQ/100 ML INFUS.BAG IVPB SCH ×2 (10:04→16:22)
[2025-04-12] MEDS: MAGNESIUM 2GM/50ML STERILE WATER IVPB IVPB ONE (10:58)
[2025-04-12] MEDS: THEOPHYLLINE ANHYDROUS 200 MG CAP.ER.24H PO SCH (11:20)
[2025-04-12] MEDS ORDERED: ONDANSETRON 4 MG/2 ML VIAL IVPUSH PRN ×2 (12:39→15:19)
[2025-04-12] MEDS ORDERED: LIDOCAINE HCL 1%, 10 MG/ML (20ML VIAL) ONE (12:59)
[2025-04-12] MEDS ORDERED: BUPIVACAINE HCL/PF 0.5% (5MG/ML) 10 ML VIAL ONE (12:59)
[2025-04-12] MEDS ORDERED: MIDAZOLAM HCL 2 MG/2 ML SINGLE DOSE VIAL ONE (13:31)
[2025-04-12] MEDS ORDERED: LIDOCAINE HCL/PF 2% SDV 5ML VIAL ONE (13:42)
[2025-04-12] MEDS ORDERED: PROPOFOL 20 ML ONE (13:44)
[2025-04-12] MEDS ORDERED: DEXAMETHASONE SOD PHOSPHATE 4 MG/1 ML VIAL ONE (13:52)
[2025-04-12] MEDS ORDERED: ONDANSETRON 4 MG/2 ML VIAL ONE (13:52)
[2025-04-12] MEDS: BUPIVACAINE HCL/PF 0.5% (5MG/ML) 10 ML VIAL IJ ONE (14:05)
[2025-04-12] MEDS ORDERED: KETOROLAC TROMETHAMINE 30 MG/1 ML VIAL ONE (14:10)
[2025-04-12] MEDS: LACTATED RINGERS SOLUTION 1,000 ML IV SCH ×2 (16:23→19:31)
[2025-04-12] MEDS: MAGNESIUM OXIDE 400 MG TABLET (FP) PO ONE (21:42)
[2025-04-12] MEDS: POTASSIUM CHLORIDE ORAL LIQUID 20 MEQ/15 ML PO ONE (21:42)
[2025-04-12] MEDS: MONTELUKAST NA 10 MG TABLET PO SCH (21:43)
[2025-04-12] MEDS ORDERED: MONTELUKAST NA 10 MG TABLET PO SCH (22:00)
[2025-04-12 22:54] VITALS: RESP 18
[2025-04-13] MEDS: diphenhydrAMINE HCL 25 MG CAPSULE (FP) PO ONE ×2 (02:54→22:04)
[2025-04-13] MEDS: ACETAMINOPHEN 325 MG TABLET (FP) PO PRN (04:12)
[2025-04-13 08:39] LABS: ABSOLUTE IMMATURE GRANULOCYTES 0.02 x10^3/uL (0.0-0.031); BASOPHILS # 0.03 x10^3/uL (0.01-0.08); EOSINOPHIL % 0.8 % (0.7-5.8); EOSINOPHILS # 0.04 x10^3/uL (0.04-0.36); MCHC 32.1 g/dl (32.2-35.5); MEAN CELL VOLUME 96.1 fl (79.4-94.8); MEAN PLT VOLUME 10.6 fl (9.4-12.3); MONOCYTE # 0.41 x10^3/uL (0.24-0.86); MONOCYTE % 7.8 % (4.7-12.5); RDW 14.8 % (12.3-16.6)
[2025-04-13 09:20] LABS: CREATININE 0.7 mg/dL (0.55-1.3)
[2025-04-13 09:21] LABS: GLUCOSE,RANDOM 103.0 mg/dL (74-106)
[2025-04-13 09:22] LABS: CO2 27.0 mmol/L (21-32); TOT PROT 6.8 g/dl (6.4-8.2)
[2025-04-13 09:23] LABS: ALK PHOS 46.0 U/L (45-117)
[2025-04-13 09:24] LABS: SGOT/AST 13.0 U/L (15-37); SGPT/ALT 14.0 U/L (13-61)
[2025-04-13] MEDS: SERTRALINE HCL 25 MG TABLET (FP) PO SCH (09:47)
[2025-04-13] MEDS: MULTIVITAMINS (DAILY MVI) TABLET (FP) PO SCH (09:47)
[2025-04-13] MEDS: FERROUS SO4 325 MG TABLET (FP) PO SCH (09:48)
[2025-04-13] MEDS: THEOPHYLLINE ANHYDROUS 200 MG CAP.ER.24H PO SCH (09:48)
[2025-04-13] MEDS: FLUTICASONE/UMECLIDIN/VILANTER(200-62.5-25 TRELEGY ELLIPTA) INAHLER IH SCH (09:49)
[2025-04-13] MEDS: ENOXAPARIN NA (PORCINE) 40 MG/0.4 ML DISP.SYRIN SQ SCH (15:55)
[2025-04-14 06:08] VITALS: PULSE 73
[2025-04-14 08:44] LABS: ABSOLUTE IMMATURE GRANULOCYTES 0.00 x10^3/uL (0.0-0.031); BASOPHILS # 0.03 x10^3/uL (0.01-0.08); EOSINOPHIL % 12.6 % (0.7-5.8); EOSINOPHILS # 0.52 x10^3/uL (0.04-0.36); MCHC 31.1 g/dl (32.2-35.5); MEAN CELL VOLUME 98.7 fl (79.4-94.8); MEAN PLT VOLUME 11.1 fl (9.4-12.3); MONOCYTE # 0.34 x10^3/uL (0.24-0.86); MONOCYTE % 8.3 % (4.7-12.5); RDW 15.4 % (12.3-16.6)
[2025-04-14 09:42] LABS: CO2 30.0 mmol/L (21-32); GLUCOSE,RANDOM 93.0 mg/dL (74-106)
[2025-04-14 09:45] LABS: CREATININE 0.7 mg/dL (0.55-1.3); SGOT/AST 27.0 U/L (15-37); SGPT/ALT 32.0 U/L (13-61)
[2025-04-14 09:46] LABS: TOT PROT 6.2 g/dl (6.4-8.2)
[2025-04-14 09:48] LABS: ALK PHOS 56.0 U/L (45-117)
[2025-04-14 11:42] VITALS: BP 147/93; TEMP 98.6
== END 2025-04-14 13:39 | disposition home or self-care (01) ==
LOC: JER 16:28 → JERBED 21:45 → J7W 23:48 → J8W 04-12 15:46
PROVIDERS: ADMIT Student in an Organized Health Care Education/Training Program; ATTEND Nurse Practitioner Family
PROC: 0W9F4ZZ Drainage of Abdominal Wall, Percutaneous Endoscopic Approach (ICD-10-PCS; principal; 2025-04-11)
PROC: 3E03329 Introduction of Other Anti-infective into Peripheral Vein, Percutaneous Approach (ICD-10-PCS; 2025-04-11)
PROC: 3E023GC Introduction of Other Therapeutic Substance into Muscle, Percutaneous Approach (ICD-10-PCS; 2025-04-11)
PROC: 3E033NZ Introduction of Analgesics, Hypnotics, Sedatives into Peripheral Vein, Percutaneous Approach (ICD-10-PCS; 2025-04-11)
PROC: 3E0337Z Introduction of Electrolytic and Water Balance Substance into Peripheral Vein, Percutaneous Approach (ICD-10-PCS; 2025-04-11)
PROC: 3E033GC Introduction of Other Therapeutic Substance into Peripheral Vein, Percutaneous Approach (ICD-10-PCS; 2025-04-11)
DX: S31.109S Unspecified open wound of abdominal wall, unspecified quadrant without penetration into peritoneal cavity, sequela (principal); X58.XXXS Exposure to other specified factors, sequela; R10.9 Unspecified abdominal pain; Z91.89 Other specified personal risk factors, not elsewhere classified; J44.9 Chronic obstructive pulmonary disease, unspecified; G89.29 Other chronic pain; F41.9 Anxiety disorder, unspecified; N28.1 Cyst of kidney, acquired; K92.9 Disease of digestive system, unspecified; Z88.8 Allergy status to other drugs, medicaments and biological substances
CPT/HCPCS: 10060; 36415; 71045-TC-FY; 74177-TC; 80053; 82962; 83690; 83735; 84100; 84132; 84484; 85025; 85610; 86682; 86803; 86850; 86900; 86901; 87070; 87205; 87389; 88304-TC; 93005; 93010; 94760; 96361; 96372; 96374; 96375; 96376; 99285-25; G0378; Q9967

== ENCOUNTER 2025-06-29 06:58 | Day surgery (SDC) | payer OTHER ==
[2025-06-27 09:37] VITALS: BMI 27.4
[2025-06-29 07:35] VITALS: RESP 18
[2025-06-29] MEDS ORDERED: PROPOFOL 40 ML ONE (07:52)
[2025-06-29] MEDS ORDERED: MIDAZOLAM HCL 2 MG/2 ML SINGLE DOSE VIAL ONE (07:52)
[2025-06-29] MEDS ORDERED: LIDOCAINE HCL/PF 2% SDV 5ML VIAL ONE (07:53)
[2025-06-29] MEDS ORDERED: LIDOCAINE HCL 2% (20ML MULTI-DOSE VIAL) ONE (08:09)
[2025-06-29] MEDS: LIDOCAINE HCL 2% (50ML VIAL) NR ONE (08:59)
[2025-06-29 09:49] VITALS: TEMP 97.6
[2025-06-29 10:18] VITALS: BP 132/84; PULSE 71
== END 2025-06-29 11:15 | disposition home or self-care (01) ==
LOC: FASU 06:58
PROVIDERS: ATTEND Orthopaedic Surgery Sports Medicine
PROC: 0LN70ZZ Release Right Hand Tendon, Open Approach (ICD-10-PCS; principal; 2025-06-29 09:01)
DX: M65.311 Trigger thumb, right thumb (principal)